=== PATIENT | female | born 1950 | race Caucasian/White ===

== ENCOUNTER 2017-11-21 07:52 | Day surgery (SDC) | payer MEDICARE, BC ==
[2017-11-16 16:34] VITALS: BMI 44.2
[2017-11-21 08:30] VITALS: TEMP 98.4
[2017-11-21] MEDS ORDERED: LIDOCAINE 1% 20 ML VIAL (10MG/ML) FOR IV START INTRADERMA ONE (08:46)
[2017-11-21] MEDS: LACTATED RINGERS 1,000 ML IV SCH ×2 (08:46→09:11)
[2017-11-21] MEDS ORDERED: PROPOFOL 10 MG/ML 20 ML VIAL IV ONE (09:13)
--- NOTE | 2017-11-21 09:42 | P.PCN ---
Date of Procedure: 11/21/17 Procedure(s) Performed: Procedure: Colonoscopy and biopsy. Preoperative diagnosis: Chronic diarrhea. Postoperative diagnosis: Exam of the colon and terminal ileum within normal limits. Preparation: HalfLytely prep. Sedation: Was provided by anesthesia. Brief clinical history: The patient is a 67-year-old female who was evaluated in the office around the end of August 2017 for diarrhea of 9 months duration. The patient reported having 6 or more bowel movements daily which are mushy and at times liquidy but without blood. No extraintestinal manifestations of inflammatory bowel disease. She had a colonoscopy 6 or 7 years prior. This evaluation is scheduled to assess for infectious or inflammatory conditions or other pathology. Procedure: With the patient on her left lateral decubitus position and after informed consent and adequate sedation, the perianal area was inspected and it did not show any fissures or fistulas. There were no masses felt on digital rectal examination. The Olympus CFQ 160L video colonoscope was then inserted in the rectum in the usual fashion and advanced to the cecum. I intubated the ileocecal valve and examined the terminal ileum as well as. Terminal ileum and colon appeared healthy with no edema, erythema, friability, ulceration, exudation or spontaneous bleeding. No polyps or tumors were seen or any obvious diverticular disease. I retroflexed the endoscope in the rectum before the endoscope was withdrawn. The patient tolerated the procedure well. Plan: The patient was reassured. Will await biopsy results. She will follow- up in the office as planned and we would keep you updated on her progress. As far as colon screening, I recommended a repeat colonoscopy in 10 years.
[2017-11-21 09:44] VITALS: RESP 20
[2017-11-21 10:04] VITALS: BP 127/76; PULSE 78
== END 2017-11-21 10:39 | disposition home or self-care (01) ==
LOC: ORWHC2ENDO 07:52
DX: K52.9 Noninfective gastroenteritis and colitis, unspecified (principal); K21.9 Gastro-esophageal reflux disease without esophagitis; I10 Essential (primary) hypertension; M10.9 Gout, unspecified; E07.9 Disorder of thyroid, unspecified; Z88.0 Allergy status to penicillin; Z79.899 Other long term (current) drug therapy
CPT/HCPCS: 88305; 45380; J2704

== ENCOUNTER 2018-06-30 15:36 | Emergency (ER) | payer MEDICARE, BC ==
[2018-06-30 16:45] VITALS: BP 137/76; PULSE 65; RESP 18; TEMP 97.4
--- NOTE | 2018-06-30 17:56 | XR ---
EXAMINATION TYPE: XR foot complete RT DATE OF EXAM: 06/30/2018 COMPARISON: NONE HISTORY: Foot pain TECHNIQUE: 3 views FINDINGS: There is some narrowing and spurring at the first MP joint. I see no fracture nor dislocati on. Metatarsals are intact. There is small plantar calcaneal spur. There are no erosions. 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 No fracture seen. Calcaneal spurring.
--- NOTE | 2018-06-30 17:57 | XR ---
EXAMINATION TYPE: XR ankle complete RT DATE OF EXAM: 06/30/2018 COMPARISON: NONE HISTORY: Ankle pain TECHNIQUE: 3 views FINDINGS: I see no fracture nor dislocation. Ankle mortise is anatomic. There is plantar calcaneal sp urring. Subtalar joint appears normal. IMPRESSION: No acute abnormality of the right ankle.
--- NOTE | 2018-06-30 18:18 | ED ---
General Adult HPI - General Chief complaint: Extremity Problem,Nontraumatic Stated complaint: Foot Pain Time Seen by Provider: 06/30/18 16:53 Source: patient Mode of arrival: ambulatory Limitations: no limitations - History of Present Illness Initial comments: 68-year-old female with a medical history of GERD and hypertension presents to the emergency department for a chief complaint of right dorsal foot pain times one day. Patient states she is in the process of moving and has been on her feet over the past few days packing and moving heavy objects. Patient denies any other specific injuries to the right foot. Patient states that today she started to notice pain in her right foot when standing. Patient states it is painful to walk on but she can walk on it. Patient denies pain in the ankle. Patient denies pain in the calf. No weakness in the right lower extremity. Patient states she often gets mild swelling in her lower extremities when she is on her feet. She states this has been ongoing and her primary care provider is aware. Patient has no other complaints at this time including shortness of breath, chest pain, abdominal pain, nausea or vomiting, headache, or visual changes. -: hour(s) - Related Data Home Medications Medication Instructions Recorded Confirmed Allopurinol 300 mg PO DAILY 08/30/16 06/30/18 Levothyroxine Sodium [Synthroid] 150 mcg PO DAILY 08/30/16 06/30/18 Liothyronine Sodium [Cytomel] 5 mcg PO DAILY 08/30/16 06/30/18 Multivitamins, Thera [Multivitamin 1 tab PO DAILY 08/30/16 06/30/18 (formulary)] Olmesartan [Benicar] 20 mg PO DAILY 08/30/16 06/30/18 Omeprazole 20 mg PO DAILY 08/30/16 06/30/18 Diphenox-Atrop 2.5-0.025 mg 1 tab PO DAILY 06/30/18 06/30/18 [Lomotil] Allergies Allergy/AdvReac Type Severity Reaction Status Date / Time Penicillins Allergy Rash/Hives Verified 06/30/18 16:57 Review of Systems ROS Statement: Those systems with pertinent positive or pertinent negative responses have been documented in the HPI. ROS Other: All systems not noted in ROS Statement are negative. Past Medical History Past Medical History: GERD/Reflux, Hypertension, Thyroid Disorder Additional Past Medical History / Comment(s): GOUT History of Any Multi-Drug Resistant Organisms: None Reported Past Surgical History: Orthopedic Surgery Additional Past Surgical History / Comment(s): thyroidecetomy, bilat. total knee replacements, choley, , pre-cancerous lesions., avi cataracts. Past Anesthesia/Blood Transfusion Reactions: No Reported Reaction Past Psychological History: No Psychological Hx Reported Smoking Status: Never smoker Past Alcohol Use History: Occasional Past Drug Use History: None Reported - Past Family History Father Family Medical History: Coronary Artery Disease (CAD), CVA/TIA, Diabetes Mellitus Mother Family Medical History: Coronary Artery Disease (CAD) General Exam Limitations: no limitations General appearance: alert, in no apparent distress Head exam: Present: atraumatic, normocephalic, normal inspection Eye exam: Present: normal appearance. Absent: scleral icterus, conjunctival injection ENT exam: Present: normal exam, mucous membranes moist Neck exam: Present: normal inspection. Absent: tenderness, meningismus, lymphadenopathy Respiratory exam: Present: normal lung sounds bilaterally. Absent: respiratory distress, wheezes, rales, rhonchi, stridor Extremities exam: Present: full ROM (Full range of motion of the right lower extremity including the digits, ankle and knee.), tenderness (Tenderness to the mid dorsal aspect of the left foot around the first through third metatarsals), normal capillary refill (Capillary refill less than 2 seconds and pedal pulse 2+ ), pedal edema (Patient has 1+ nonpitting edema which is equal bilaterally), other (Sensation intact in the right lower extremity). Absent: calf tenderness (No calf pain or swelling in the calf. No erythema or increased warmth. Negative Homans sign.) Back exam: Absent: tenderness Neurological exam: Present: alert, oriented X3, CN II-XII intact, normal gait ( Ambulatory in the emergency department) Psychiatric exam: Present: normal affect, normal mood Course Vital Signs 06/30/18 16:40 Temperature 97.4 F L Pulse Rate 65 Respiratory 18 Rate Blood Pressure 137/76 O2 Sat by Pulse 100 Oximetry Medical Decision Making - Medical Decision Making 68-year-old female presents to the emergency department for a chief complaint of right foot pain times one day. 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 Patient states Tylenol has been helping the pain. Patient has tenderness of the dorsal right foot. 1+ pitting edema noted to the bilateral lower extremities equally. No erythema or signs of infection in the right foot. Sensation intact. Neurovascular intact. Patient is able to ambulate on the right foot. No tenderness in the right calf. Negative Homans sign. No increased warmth or erythema noted in the right calf. No clinical signs of DVT. X-ray of the right foot shows osteoarthritis of the first MP joint. No fracture seen. Metatarsals are intact. Ankle x-ray shows no acute abnormality of the right ankle. Patient's left foot pain is likely related to overuse and osteoarthritis. Dawit wrap was applied to the right foot. Patient was educated to keep feet elevated and rest for the next few days. She can also ice the foot. Follow-up with primary care in 1-2 days. She will return to the emergency Department if she has any worsening symptoms. Disposition Clinical Impression: Arthritis, Overuse injury Disposition: HOME SELF-CARE Condition: Good Instructions: Osteoarthritis (ED), R.I.C.E. Treatment (ED) Additional Instructions: Please rest ice and elevate the right foot. Use Dawit wrap as necessary. Follow- up with primary care in 1-2 days. Return if you have any worsening symptoms, increased pain, or increased swelling. Is patient prescribed a controlled substance at d/c from ED?: No Referrals: Jasiel Ramos MD [Primary Care Provider] - 1-2 days Time of Disposition: 18:15
== END 2018-06-30 18:31 | disposition home or self-care (01) ==
LOC: EC 15:36
DX: M19.071 Primary osteoarthritis, right ankle and foot (principal); M70.871 Other soft tissue disorders related to use, overuse and pressure, right ankle and foot; K21.9 Gastro-esophageal reflux disease without esophagitis; I10 Essential (primary) hypertension; E07.9 Disorder of thyroid, unspecified; M10.9 Gout, unspecified; Z96.653 Presence of artificial knee joint, bilateral; Z79.899 Other long term (current) drug therapy; Z88.0 Allergy status to penicillin; Y93.E6 Activity, residential relocation
CPT/HCPCS: 99283

== ENCOUNTER → 2019-03-20 | Outpatient (CLI) | payer MEDICARE, BC ==
--- NOTE | 2019-03-20 14:34 | MM ---
Reason for exam: screening (asymptomatic). Last mammogram was performed 1 year and 6 months ago. History: Patient is postmenopausal and has history of other cancer at age 64. Physical Findings: A clinical breast exam by your physician is recommended on an annual basis and results should be correlated with mammographic findings. MG 3D Screening Mammo W/Cad Bilateral CC and MLO view(s) were taken. Prior study comparison: October 04, 2017, bilateral MG 3d screening mammo w/cad. June 11, 2016, bilateral MG 3d screening mammo w/cad. There are scattered fibroglandular densities. There is a stable lower outer quadrant mass at anterior depth back to 2013. No suspicious abnormality. No significant changes when compared with prior studies. ASSESSMENT: Benign, BI-RAD 2 RECOMMENDATION: Routine screening mammogram of both breasts in 1 year.
== END | disposition home or self-care (01) ==
LOC: RADMAMWWP 06:52
PROVIDERS: ATTEND Internal Medicine
DX: Z12.31 Encounter for screening mammogram for malignant neoplasm of breast (principal)
CPT/HCPCS: 77063; 77067

== ENCOUNTER → 2020-07-23 | Outpatient (CLI) | payer MEDICARE, BC ==
--- NOTE | 2020-07-23 14:32 | XR ---
EXAMINATION TYPE: XR knee standing AP BILAT DATE OF EXAM: 07/23/2020 CLINICAL HISTORY: Knee pain TECHNIQUE: AP standing views of the bilateral knees are obtained. COMPARISON: None. FINDINGS: There is no acute fracture/dislocation evident bilateral knees. Total knee arthroplasty is seen bilaterally. Tibial and femoral components appear to be well seated. IMPRESSION: There is no acute fracture or dislocation
== END | disposition home or self-care (01) ==
LOC: RADXRMAIN 13:54
PROVIDERS: ATTEND Internal Medicine
DX: M25.561 Pain in right knee (principal)
CPT/HCPCS: 73565

== ENCOUNTER 2020-07-26 17:05 | Emergency (ER) | payer MEDICARE, BC ==
[2020-07-26 17:14] VITALS: BP 107/77; PULSE 78; RESP 18; TEMP 98.2
[2020-07-26] MEDS ORDERED: cefTRIAXone IN SWFI 1,000 MG/10 ML SYRINGE IVP STA (18:04)
[2020-07-26 18:16] LABS: Basophils % (A) 0 %; Eosinophils # (A) 0.3 k/uL (0-0.7); Eosinophils % (A) 2 %; HCT 41.1 % (34.0-46.0); HGB 13.3 gm/dL (11.4-16.0); Lymphocytes # (A) 3.3 k/uL (1.0-4.8); Lymphocytes % (A) 29 %; MCH 29.9 pg (25.0-35.0); MCHC 32.4 g/dL (31.0-37.0); MCV 92.3 fL (80.0-100.0); Mean Platelet Volume 7.7; Monocytes # (A) 0.5 k/uL (0-1.0); Monocytes % (A) 4 %; Neutrophils # (A) 7.3 k/uL (1.3-7.7); Neutrophils % (A) 64 %; Platelet Count 314 k/uL (150-450); RBC 4.45 m/uL (3.80-5.40); RDW 14.9 % (11.5-15.5); WBC 11.6 k/uL (3.8-10.6)
[2020-07-26 18:33] LABS: Albumin 3.6 g/dL (3.5-5.0); Calcium 9.5 mg/dL (8.4-10.2); Potassium 4.4 mmol/L (3.5-5.1); Total Bilirubin 0.3 mg/dL (0.2-1.3); Total Protein 6.9 g/dL (6.3-8.2)
--- NOTE | 2020-07-26 18:36 | ED ---
Lower Extremity Injury HPI - General Source: patient Mode of arrival: ambulatory Limitations: no limitations <Dora Syed - Last Filed: 07/27/20 10:40> <Asuncion Mendez - Last Filed: 07/27/20 12:32> - General Chief Complaint: Extremity Injury, Lower Stated Complaint: L knee pain Time Seen by Provider: 07/26/20 17:16 - History of Present Illness Initial Comments: 70yo female presenting today for chief complaint of left anterior knee redness. Patient states she fell and had some superficial abrasions to the left anterior knee. Patient states she did x-rays at that time which were negative. Patient states she is able to weight-bear and ambulate however has noticed redness for the past few days over the anterior knee sprain slightly distally. Patient denies any posterior knee pain. Denies fever chills general malaise additional complaints remaining review of system negative (Dora Syed) - Related Data Home Medications Medication Instructions Recorded Confirmed Allopurinol 300 mg PO DAILY 08/30/16 06/30/18 Levothyroxine Sodium [Synthroid] 150 mcg PO DAILY 08/30/16 06/30/18 Liothyronine Sodium [Cytomel] 5 mcg PO DAILY 08/30/16 06/30/18 Multivitamins, Thera [Multivitamin 1 tab PO DAILY 08/30/16 06/30/18 (formulary)] Olmesartan [Benicar] 20 mg PO DAILY 08/30/16 06/30/18 Omeprazole 20 mg PO DAILY 08/30/16 06/30/18 Diphenox-Atrop 2.5-0.025 mg 1 tab PO DAILY 06/30/18 06/30/18 [Lomotil] Previous Rx's Medication Instructions Recorded Cephalexin [Keflex] 500 mg PO Q6HR 7 Days #28 cap 07/26/20 Allergies Allergy/AdvReac Type Severity Reaction Status Date / Time Penicillins Allergy Rash/Hives Verified 07/26/20 17:10 Review of Systems ROS Other: All systems not noted in ROS Statement are negative. <Dora Syed - Last Filed: 07/27/20 10:40> ROS Other: All systems not noted in ROS Statement are negative. <Asuncion Mendez - Last Filed: 09/27/20 12:32> ROS Statement: Those systems with pertinent positive or pertinent negative responses have been documented in the HPI. Past Medical History Past Medical History: GERD/Reflux, Hypertension, Thyroid Disorder Additional Past Medical History / Comment(s): GOUT History of Any Multi-Drug Resistant Organisms: None Reported Past Surgical History: Orthopedic Surgery Additional Past Surgical History / Comment(s): thyroidecetomy, bilat. total knee replacements, choley, , pre-cancerous lesions., avi cataracts. Past Anesthesia/Blood Transfusion Reactions: No Reported Reaction Past Psychological History: No Psychological Hx Reported Smoking Status: Never smoker Past Alcohol Use History: Occasional Past Drug Use History: None Reported - Past Family History Father Family Medical History: Coronary Artery Disease (CAD), CVA/TIA, Diabetes Me llitus Mother Family Medical History: Coronary Artery Disease (CAD) <Dora Syed - Last Filed: 07/27/20 10:40> General Exam Limitations: no limitations <Dora Syed - Last Filed: 07/27/20 10:40> - General Exam Comments Initial Comments: General: The patient is awake and alert, in no distress Eye: +3 mm pupils are equal, round and reactive to light, extra-ocular movements are intact. No nystagmus. There is normal conjunctiva bilaterally. No signs of icterus. Cardiovascular: There is a regular rate and rhythm. No murmur, rub or gallop is appreciated. Respiratory: Lungs are clear to auscultation, respirations are non-labored, breath sounds are equal. No wheezes, stridor, rales, or rhonchi. Musculoskeletal: Redness with poorly demarcated borders, warm to touch over left anterior knee. no area of fluctuance. No localized swelling over the prepatellar bursa. Patient has no pain over the side or posterior knee, ambulates freely without difficulty, can weight bear with out difficulty.Strength 5/5. Sensation intact. Pulses equal bilaterally 2+. Neurological: A&O x 3. CN II-XII intact grossly, There are no obvious motor or sensory deficits. Coordination appears grossly intact. Speech is normal. Skin: Skin is warm and dry and no rashes or lesions are noted. Psychiatric: Cooperative, appropriate mood & affect, normal judgment. (Dora Syed) Course Vital Signs 07/26/20 07/26/20 17:11 19:07 Temperature 98.2 F 98.2 F Pulse Rate 78 78 Respiratory 18 18 Rate Blood Pressure 107/77 107/77 O2 Sat by Pulse 99 99 Oximetry Medical Decision Making - Lab Data Result diagrams: 07/26/20 17:52 07/26/20 17:52 <Dora Syed - Last Filed: 07/27/20 10:40> - Lab Data Result diagrams: 07/26/20 17:52 07/26/20 17:52 <Asuncion Mendez - Last Filed: 07/27/20 12:32> - Medical Decision Making Superficial cellulitis. Evaluated by attending. Labs stable, mild leukocytosis. she does not appear toxic. able to range freely without pain out of proportion as well as weight bear. do not feel this is a septic joitn or bursa at this time. Patient will be treated with oral antibiotics for suspected cellulitis over anterior left knee and is to f/u with PCP. Dr. Mendez agreeable to care plan. (Dora Syed) I was available for consultation in the emergency department. The history and physical exam were done by the midlevel provider. I was consulted for this patients care. I reviewed the case with the midlevel provider and based on their presentation of the patient, I agree with the assessment, medical decision making and plan of care as documented. Chart was dictated using [employer] dictation software. Attempts were made to correct any dictation errors however some typographical errors may persist. Patient was seen during a national state of emergency due to the Covid-19 pandemic. (Asuncion Mendez) - Lab Data Lab Results 07/26/20 07/26/20 Range/Units 17:52 17:52 WBC 11.6 H (3.8-10.6) k/uL RBC 4.45 (3.80-5.40) m/uL Hgb 13.3 (11.4-16.0) gm/dL Hct 41.1 (34.0-46.0) % MCV 92.3 (80.0-100.0) fL MCH 29.9 (25.0-35.0) pg MCHC 32.4 (31.0-37.0) g/dL RDW 14.9 (11.5-15.5) % Plt Count 314 (150-450) k/uL Neutrophils % 64 % Lymphocytes % 29 % Monocytes % 4 % Eosinophils % 2 % Basophils % 0 % Neutrophils # 7.3 (1.3-7.7) k/uL Lymphocytes # 3.3 (1.0-4.8) k/uL Monocytes # 0.5 (0-1.0) k/uL Eosinophils # 0.3 (0-0.7) k/uL Basophils # 0.0 (0-0.2) k/uL Sodium 137 (137-145) mmol/L Potassium 4.4 (3.5-5.1) mmol/L Chloride 109 H (98-107) mmol/L Carbon Dioxide 22 (22-30) mmol/L Anion Gap 6 mmol/L BUN 25 H (7-17) mg/dL Creatinine 0.81 (0.52-1.04) mg/dL Est GFR (CKD-EPI)AfAm 85 (>60 ml/min/1.73 sqM) Est GFR (CKD-EPI)NonAf 74 (>60 ml/min/1.73 sqM) Glucose 111 H (74-99) mg/dL Calcium 9.5 (8.4-10.2) mg/dL Total Bilirubin 0.3 (0.2-1.3) mg/dL AST 25 (14-36) U/L ALT 15 (4-34) U/L Alkaline Phosphatase 102 (38-126) U/L Total Protein 6.9 (6.3-8.2) g/dL Albumin 3.6 (3.5-5.0) g/dL Disposition Is patient prescribed a controlled substance at d/c from ED?: No Time of Disposition: 18:35 <Dora Syed - Last Filed: 07/27/20 10:40> <Asuncion Mendez - Last Filed: 07/27/20 12:32> Clinical Impression: Cellulitis, Anterior knee pain Disposition: HOME SELF-CARE Condition: Good Additional Instructions: Please use medication as discussed. Please follow-up with family doctor in the next 2 days.. Please return to emergency room if the symptoms increase or worsen or for any other concerns. Prescriptions: Cephalexin [Keflex] 500 mg PO Q6HR 7 Days #28 cap Referrals: Alvin Clements MD [Primary Care Provider] - 1-2 days
== END 2020-07-26 19:08 | disposition home or self-care (01) ==
LOC: EC 17:05
DX: L03.116 Cellulitis of left lower limb (principal); D72.829 Elevated white blood cell count, unspecified; I10 Essential (primary) hypertension; E07.9 Disorder of thyroid, unspecified; K21.9 Gastro-esophageal reflux disease without esophagitis; M10.9 Gout, unspecified; Z79.890 Hormone replacement therapy; Z79.899 Other long term (current) drug therapy; Z88.0 Allergy status to penicillin; Z96.653 Presence of artificial knee joint, bilateral
CPT/HCPCS: 36415; 80053; 85025; 99283; 96374; J0696

== ENCOUNTER 2021-01-23 14:47 | Emergency (ER) | payer MEDICARE, BC ==
[2021-01-23 14:53] VITALS: RESP 18
--- NOTE | 2021-01-23 15:24 | ED ---
Female Urogenital HPI - General Chief complaint: Urogenital Stated complaint: Abd pain, Possible UTI Time Seen by Provider: 01/23/21 15:02 Source: patient, RN notes reviewed Mode of arrival: ambulatory Limitations: no limitations - History of Present Illness Initial comments: Patient is a 70-year-old female presents emergency department with dysuria and frequency. She noted that she's been having this issue for approximately 1 day. She notes that she does have a history of UTI but then several years since her last one. She denied any other complaints or issues while sitting up in bed during exam and interview. She was in no apparent distress or pain. She denied any recent antibiotic use chest pain shortness of breath headache nausea vomitin g diarrhea constipation fever fatigue chills - Related Data Home Medications Medication Instructions Recorded Confirmed Allopurinol 300 mg PO DAILY 08/30/16 06/30/18 Levothyroxine Sodium [Synthroid] 150 mcg PO DAILY 08/30/16 06/30/18 Liothyronine Sodium [Cytomel] 5 mcg PO DAILY 08/30/16 06/30/18 Multivitamins, Thera [Multivitamin 1 tab PO DAILY 08/30/16 06/30/18 (formulary)] Olmesartan [Benicar] 20 mg PO DAILY 08/30/16 06/30/18 Omeprazole 20 mg PO DAILY 08/30/16 06/30/18 Diphenox-Atrop 2.5-0.025 mg 1 tab PO DAILY 06/30/18 06/30/18 [Lomotil] Previous Rx's Medication Instructions Recorded Cephalexin [Keflex] 500 mg PO Q6HR 7 Days #28 cap 07/26/20 Sulfamethox-Tmp 800-160Mg [Bactrim 1 each PO Q12HR #10 tab 01/23/21 Ds] Allergies Allergy/AdvReac Type Severity Reaction Status Date / Time Penicillins Allergy Rash/Hives Verified 07/26/20 17:10 Review of Systems ROS Statement: Those systems with pertinent positive or pertinent negative responses have been documented in the HPI. ROS Other: All systems not noted in ROS Statement are negative. Past Medical History Past Medical History: GERD/Reflux, Hypertension, Thyroid Disorder Additional Past Medical History / Comment(s): GOUT History of Any Multi-Drug Resistant Organisms: None Reported Past Surgical History: Orthopedic Surgery Additional Past Surgical History / Comment(s): thyroidecetomy, bilat. total knee replacements, choley, , pre-cancerous lesions., avi cataracts. Past Anesthesia/Blood Transfusion Reactions: No Reported Reaction Past Psychological History: No Psychological Hx Reported Smoking Status: Never smoker Past Alcohol Use History: Occasional Past Drug Use History: None Reported - Past Family History Father Family Medical History: Coronary Artery Disease (CAD), CVA/TIA, Diabetes Mellitus Mother Family Medical History: Coronary Artery Disease (CAD) General Exam Limitations: no limitations General appearance: alert, in no apparent distress, obese Head exam: Present: atraumatic, normocephalic, normal inspection Eye exam: Present: normal appearance, PERRL, EOMI. Absent: scleral icterus, conjunctival injection, periorbital swelling ENT exam: Present: normal exam, mucous membranes moist Neck exam: Present: normal inspection. Absent: tenderness, meningismus, lymphadenopathy Respiratory exam: Present: normal lung sounds bilaterally. Absent: respiratory distress, wheezes, rales, rhonchi, stridor Cardiovascular Exam: Present: regular rate, normal rhythm, normal heart sounds. Absent: systolic murmur, diastolic murmur, rubs, gallop, clicks GI/Abdominal exam: Present: soft, normal bowel sounds. Absent: distended, tenderness, guarding, rebound, rigid Extremities exam: Present: normal inspection, full ROM, normal capillary refill. Absent: tenderness, pedal edema, joint swelling, calf tenderness Neurological exam: Present: alert, oriented X3, CN II-XII intact Psychiatric exam: Present: normal affect, normal mood Skin exam: Present: warm, dry, intact, normal color. Absent: rash Course Vital Signs 01/23/21 14:50 Temperature 98.2 F Pulse Rate 93 Respiratory 18 Rate Blood Pressure 95/61 O2 Sat by Pulse 100 Oximetry Medical Decision Making - Medical Decision Making 70-year-old female complaining of dysuria and frequency. Urinalysis ordered. UA shows. Tract infection. 1 g Rocephin ordered. Case discussed with Dr. Rivas, patient can discharge home - Lab Data Lab Results 01/23/21 Range/Units 16:11 Urine Color Yellow Urine Appearance Cloudy H (Clear) Urine pH 6.0 (5.0-8.0) Ur Specific [place] 1.023 (1.001-1.035) Urine Protein 2+ H (Negative) Urine Glucose (UA) Negative (Negative) Urine Ketones Negative (Negative) Urine Blood Large H (Negative) Urine Nitrite Negative (Negative) Urine Bilirubin Negative (Negative) Urine Urobilinogen 2.0 (<2.0) mg/dL Ur Leukocyte Esterase Large H (Negative) Urine RBC >182 H (0-5) /hpf Urine WBC >182 H (0-5) /hpf Urine WBC Clumps Occasional H (None) /hpf Ur Squamous Epith Cells 1 (0-4) /hpf Urine Bacteria Rare H (None) /hpf Hyaline Casts 18 H (0-2) /lpf Urine Mucus Occasional H (None) /hpf Disposition Clinical Impression: Urinary tract infection Disposition: HOME SELF-CARE Condition: Stable Instructions (If sedation given, give patient instructions): Urinary Tract Infection in Women (ED) Additional Instructions: Please return to the Emergency Department if symptoms worsen or any other concerns. If any nausea vomiting flank pain arises please return to emergency department. Increase oral fluid intake. Take a bite as prescribed until complete. Follow-up with primary care in 3-5 days. Prescriptions: Sulfamethox-Tmp 800-160Mg [Bactrim Ds] 1 each PO Q12HR #10 tab Is patient prescribed a controlled substance at d/c from ED?: No Referrals: Alvin Clements MD [Primary Care Provider] - 1-2 days Time of Disposition: 16:58
[2021-01-23 16:32] LABS: Appearance,Urine Cloudy (Clear); Bacteria,Urine Rare /hpf; Bilirubin,Urine Negative (Negative); Blood,Urine Large (Negative); Color,Urine Yellow; Glucose,Urine (UA) Negative (Negative); Hyaline Casts,Urine 18 /lpf (0-2); Ketones,Urine Negative (Negative); Leukocyte Esterase,Urine Large (Negative); Mucus,Urine Occasional /hpf; Nitrite,Urine Negative (Negative); Protein,Urine 2+ (Negative); RBC,Urine >182 /hpf (0-5); Specific Gravity,Urine 1.023 (1.001-1.035); Squamous Epithelial Cell,Urine 1 /hpf (0-4); WBC,Urine >182 /hpf (0-5)
[2021-01-23 17:34] VITALS: BP 110/65; PULSE 72; TEMP 98.1
== END 2021-01-23 17:34 | disposition home or self-care (01) ==
LOC: EC 14:47
DX: N39.0 Urinary tract infection, site not specified (principal); I10 Essential (primary) hypertension; K21.9 Gastro-esophageal reflux disease without esophagitis; Z88.0 Allergy status to penicillin
CPT/HCPCS: 81001; 87086; 99284; 96365; J0696

== ENCOUNTER → 2021-06-01 | Outpatient (CLI) | payer MEDICARE, BC ==
--- NOTE | 2021-06-01 15:02 | EST ---
EXERCISE STRESS DATE OF SERVICE: 06/01/21 AGE: 71 SEX: F HT: 5'3" WT: 260 lbs PROTOCOL: Shadi STAGE: 2 DURATION OF EXERCISE: 4:27 HEART RATE REST: 131 BLOOD PRESSURE REST: 147/91 MAXIMUM HEART RATE ACHIEVED: 131 MAXIMUM BLOOD PRESSURE: 190/97 85% MPHR: 126 100% MPHR: 148 METS: 5.8 RESULTS: Baseline rhythm is sinus mechanism. Rate 67, normal axis and intervals, rare PVCs. Baseline blood pressure 147/91 mmHg. Patient exercised on Yeison protocol for 4 minutes and 27 seconds reaching peak rate 131 beats per minute which is equal to 88% maximum predicted heart rate. Peak blood pressure 190/97 mmHg. Test for terminated secondary to fatigue. There was no chest pain. Electrocardiograph monitoring revealed frequent single PVCs. There was no evidence of diagnostic ischemic ST deviation. CONCLUSION: 1. Decreased exercise tolerance with frequent single PVCs. 2. Normal electrocardiograph response to exercise with no evidence of exercise induced ischemia. MMODL / IJN: [id number] /
--- NOTE | 2021-06-02 10:53 | NM ---
EXAMINATION TYPE: NM stress cardiolite complete DATE OF EXAM: 06/01/2021 COMPARISON: NONE HISTORY: 71 year-old female shortness of breath, dyspnea TECHNIQUE: After the intravenous administration of 10.1 mCi Tc 99m Sestamibi - Rest images obtained 45 minutes post injection. The patient exercised using a STACEY protocol and 1 minute prior to peak exercise was injected with 26.9 mCi Tc 99m Sestamibi - Stress images obtained 30 minutes post injecti on. FINDINGS: Targeted heart rate (126 BPM) was achieved during performance of the study (131 bpm achieved). Total exercise time 4 minutes 27 seconds. Review of stress and rest SPECT images demonstrates fixed perfusion defect along the inferior wall wh ich is larger on rest suggesting a component of attenuation artifact though. No discrete reversibilit y. Gated analysis shows partial augmentation of the inferior wall with an estimated left ventricular ejection fraction of a 73 %. TID is calculated at 0.85, within normal limits. IMPRESSION: Prominent fixed defect along the inferior wall is larger on rest imaging suggesting a component of at tenuation artifact. Correlate for history of prior inferior wall infarct. No discrete reversibility s een.
== END | disposition home or self-care (01) ==
LOC: RADNMMAIN 09:04
PROVIDERS: ATTEND Internal Medicine
DX: I49.3 Ventricular premature depolarization (principal)
CPT/HCPCS: 93017; 78452; A9500

== ENCOUNTER → 2021-09-09 | Outpatient (CLI) | payer MEDICARE, BC ==
--- NOTE | 2021-09-09 17:02 | BD ---
EXAMINATION TYPE: Axial Bone Density DATE OF EXAM: 09/09/2021 COMPARISON: 2014 CLINICAL HISTORY: Postmenopausal screening Height: 63 Weight: 252.6 FRAX RISK QUESTIONS: Alcohol (3 or more units per day): no Family History (Parent hip fracture): yes Glucocorticoids (More than 3mos): no (Ex: prednisone, prednisolone, methylprednisolone, dexamethasone, and hydrocortisone). History of Fracture in Adulthood: no Secondary Osteoporosis: 1. Type 1 Diabetes: no 2. Hyperthyroidism: no 3. Menopause before 45: no 4. Malnutrition: no 5. Chronic liver disease: no Rheumatoid Arthritis: no Current Tobacco Use: no RISK FACTORS HISTORY OF: Surgery to Spine/Hip(right/left)/Wrist (right/left): no Family History of Osteoporosis: yes Active: no Diet low in dairy products/other sources of calcium: no Postmenopausal woman: yes Lost more than 2 inches in height since high school: no MEDICATIONS: liothyronine, allopurinol, omeprazole, diphenoxylate, benazepril Thyroid Medications: synthroid How Long: since 1976 Additional History: EXAM MEASUREMENTS: Bone mineral densitometry was performed using the [employer] ([employer]) System. Bone mineral density as measured about the Lumbar spine is: ----- L1-L4(G/cm2): 1.008 T Score Values are as follows: ----- L2: -1.6 ----- L3: -1.1 ----- L4: -1.8 ----- L1-L4: -1.4 Bone mineral density has: decreased -4.0 % since study of: 12.25.2014 Bone mineral density about the R hip (g/cm2 0.809 Bone mineral density about the L hip (g/cm2): 0.757 T Score values are as follows: -----R Neck: -1.6 -----L Neck: -2.0 -----R Total: -1.5 -----L Total: -1.6 Bone mineral density has: decreased -4.5 % since study of: 12.25.2014 IMPRESSION: Osteopenia (T Score between -2.5 and -1). There is slightly increased risk of fracture and the patient may be considered for treatment. Re-Screen 2-5 years. NOTE: T-SCORE=SD OF THE YOUNG ADULT MEAN.
--- NOTE | 2021-09-10 11:45 | MM ---
Reason for exam: screening (asymptomatic). Last mammogram was performed 2 years and 6 months ago. History: Patient is postmenopausal and has history of other cancer at age 64. Physical Findings: A clinical breast exam by your physician is recommended on an annual basis and results should be correlated with mammographic findings. MG 3D Screening Mammo W/Cad Bilateral CC and MLO view(s) were taken. Prior study comparison: March 20, 2019, bilateral MG 3d screening mammo w/cad. October 04, 2017, bilateral MG 3d screening mammo w/cad. There are scattered fibroglandular densities. There is chronic nodularity bilaterally. There is no discrete abnormality. ASSESSMENT: Benign, BI-RAD 2 RECOMMENDATION: Routine screening mammogram of both breasts in 1 year.
== END | disposition home or self-care (01) ==
LOC: RADMAMWWP 09:15
PROVIDERS: ATTEND Internal Medicine
DX: Z12.31 Encounter for screening mammogram for malignant neoplasm of breast (principal); Z13.820 Encounter for screening for osteoporosis; M85.89 Other specified disorders of bone density and structure, multiple sites; Z78.0 Asymptomatic menopausal state
CPT/HCPCS: 77063; 77067; 77080

== ENCOUNTER → 2022-04-12 | Outpatient (CLI) | payer MEDICARE, BC ==
--- NOTE | 2022-04-13 02:14 | MR ---
EXAMINATION TYPE: MR shoulder RT wo con DATE OF EXAM: 04/12/2022 COMPARISON: Told her pain HISTORY: Right shoulder pain and limited range of motion for 6 months. Multiplanar multiecho imaging of the right shoulder with no contrast. There is some narrowing of the glenohumeral joint space. There are subchondral cystic changes in the glenoid. There is shoulder joint effusion. There are small full-thickness tear in the supraspinatus t endon over the top of the humeral head. There is no retraction. There is 1.5 cm area of edema in the glenoid. There is hypertrophic spurring at the AC joint and mild subacromial impingement on the supra spinatus tendon and muscle. The subscapularis tendon is intact. Biceps tendon is intact. The glenoid taina appear intact. There i s some fluid around the infraspinatus tendon. The humeral head shows no fracture. IMPRESSION: Small full-thickness tear in the supraspinatus tendon. No retraction. Shoulder joint effusion. Osteoa rthritis at the glenohumeral joint. Large area of edema in the glenoid with subchondral cystic change s consistent with bone bruise and osteoarthritis and degenerative cyst formation. Mild spurring at th e AC joint and subacromial impingement. Degenerative cyst formation also present in the superior christiano ral head.
== END | disposition home or self-care (01) ==
LOC: RADMRIMAIN 19:43
PROVIDERS: ATTEND Internal Medicine
DX: M25.511 Pain in right shoulder (principal); M75.121 Complete rotator cuff tear or rupture of right shoulder, not specified as traumatic

== ENCOUNTER → 2022-09-27 | Outpatient (CLI) | payer MEDICARE, BC ==
--- NOTE | 2022-09-27 13:05 | US ---
EXAMINATION TYPE: US carotid duplex BILAT DATE OF EXAM: 09/27/2022 COMPARISON: NONE CLINICAL HISTORY: I65.23 OCCLUSION AND STENOSIS OF BILATERAL CAROTID. TECHNIQUE: Carotid duplex ultrasound examination. Indirect Doppler criteria was utilized. FINDINGS: EXAM MEASUREMENTS: RIGHT: Peak Systolic Velocity (PSV) cm/sec ----- Right CCA: 78.0 ----- Right ICA: 94.0 ----- Right ECA: 52.9 ICA/CCA ratio: 1.21 RIGHT: End Diastole cm/sec ----- Right CCA: 26.6 ----- Right ICA: 39.1 ----- Right ECA: 11.3 LEFT: Peak Systolic Velocity (PSV) cm/sec ----- Left CCA: 70.0 ----- Left ICA: 110 ----- Left ECA: 64.3 ICA/CCA ratio: 1.57 LEFT: End Diastole cm/sec ----- Left CCA: 24.1 ----- Left ICA: 39.0 ----- Left ECA: 9.8 VERTEBRALS (direction of flow): Right Vertebral: Antegrade Left Vertebral: Antegrade Rhythm: Normal RN ER NOTES: Mild plaque bilateral bifurcations. No evidence of increased velocities. IMPRESSION: No hemodynamically significant stenosis in either internal carotid artery. Criteria for Assigning % of Stenosis / Diameter reduction (Estimation based on the indirect measurements of the internal carotid artery velocities (ICA PSV). 1. Normal (no stenosis)=ICA PSV < 125 cm/s: ratio < 2.0: ICA EDV<40 cm/s. 2. Less than 50% stenosis=ICA PSV < 125 cm/s: ratio < 2.0: ICA EDV<40 cm/s. 3. 50 to 69% stenosis=ICA PSV of 125 to 230 cm/s: ration 2.0 ? 4.0: ICA EDV 40-100 cm/s. 4. Greater than 70% stenosis to near occlusion= ICA PSV > 230 cm/s: ratio > 4.0: ICA EDV > 100 cm/s. 5. Near occlusion= ICA PSV velocities may be low or undetectable: variable ratio and ICA EDV. 6. Total occlusion=unable to detect flow.
== END | disposition home or self-care (01) ==
LOC: RADUSWWP 12:17
PROVIDERS: ATTEND Internal Medicine
DX: I65.23 Occlusion and stenosis of bilateral carotid arteries (principal); I34.0 Nonrheumatic mitral (valve) insufficiency
CPT/HCPCS: 93880

== ENCOUNTER → 2022-11-02 | Outpatient (CLI) | payer MEDICARE, BC ==
--- NOTE | 2022-11-03 17:46 | MM ---
Reason for Exam: Screening (asymptomatic). Last mammogram was performed 1 year(s) and 2 month(s) ago. Patient History: Menarche at age 13. First Full-Term at age 26. Postmenopausal. Other cancer, age 64. Risk Values: Shama 5 year model risk: 1.8%. NCI Lifetime model risk: 4.4%. Prior Study Comparison: 10/04/2017 Bilateral Screening Mammogram, [facility]. 03/20/2019 Bilateral Screening Mammogram, [facility]. 09/09/2021 Bilateral Screening Mammogram, [facility]. Tissue Density: There are scattered fibroglandular densities. Findings: Analyzed By CAD. Pattern appears symmetrical and stable. Chronic nodularity is noted bilaterally No suspicious groups of microcalcifications, spiculated or lobular masses, architectural distortion or other secondary signs of malignancy are mammographically apparent. Overall Assessment: Benign, BI-RAD 2 Management: Screening Mammogram of both breasts in 1 year. A negative mammogram report should not preclude additional follow up of suspicious palpable abnormalities. Patient should continue monthly self breast exam. A clinical breast exam by your physician is recommended on an annual basis and results should be correlated with mammographic findings. Electronically signed and approved by: Joel Ahn D.O. Radiologis
== END | disposition home or self-care (01) ==
LOC: RADMAMWWP 11:18
PROVIDERS: ATTEND Internal Medicine
DX: Z12.31 Encounter for screening mammogram for malignant neoplasm of breast (principal); Z78.0 Asymptomatic menopausal state
CPT/HCPCS: 77063; 77067

== ENCOUNTER → 2022-11-16 | Outpatient (CLI) | payer MEDICARE, BC ==
--- NOTE | 2022-11-16 13:33 | CA ---
Transthoracic Echo Report Name: Andreia Burnette Age: 72 Gender: F : 1950 Exam Date: 11/16/2022 08:30 Exam Location: [facility] Ht (in): 63 Wt (lb): 260 Ordering Physician: Alvin Clements MD Attending/Referring Phys: Die Inspector Kirsten Cheung RDCS Procedure CPT: Indications: I34.0 NONRHEUMATIC MITRAL (VALVE) INSUFF Cardiac Hx: Technical Quality: Fair Contrast 1: Total Dose (mL): Contrast 2: Total Dose (mL): MEASUREMENTS (Male / Female) Normal Values 2D ECHO LV Diastolic Diameter PLAX 2.9 cm 4.2 - 5.9 / 3.9 - 5.3 cm LV Systolic Diameter PLAX 1.8 cm IVS Diastolic Thickness 1.4 cm 0.6 - 1.0 / 0.6 - 0.9 cm LVPW Diastolic Thickness 1.2 cm 0.6 - 1.0 / 0.6 - 0.9 cm LV Relative Wall Thickness 0.9 RV Internal Dim ED PLAX 3.3 cm LA Volume 75.2 cm??? 18 - 58 / 22 - 52 cm??? M-MODE Aortic Root Diameter MM 3.5 cm LA Systolic Diameter MM 4.9 cm LA Ao Ratio MM 1.4 DOPPLER AV Peak Velocity 147.8 cm/s AV Peak Gradient 8.7 mmHg LVOT Peak Velocity 132.6 cm/s LVOT Peak Gradient 7.0 mmHg MV Area PHT 2.9 cm??? Mitral E Point Velocity 58.3 cm/s Mitral A Point Velocity 128.0 cm/s Mitral E to A Ratio 0.5 MV Deceleration Time 259.2 ms MV E' Velocity 2.9 cm/s Mitral E to MV E' Ratio 19.9 TR Peak Velocity 255.1 cm/s TR Peak Gradient 26.0 mmHg Right Ventricular Systolic Press 29.3 mmHg FINDINGS Left Ventricle Moderately increased left ventricular wall thickness. Left ventricular cavity size normal. Normal left ventricular systolic function with no obvious regional wall motion abnormalities. Left ventricular ejection fraction is estimated at 55-60 %. Right Ventricle Normal right ventricular size and function. Right ventricular systolic pressure within normal limits. Right Atrium Normal right atrial size. Left Atrium Moderate left atrial dilatation. Mitral Valve Structurally normal mitral valve. [id number] mitral regurgitation. Aortic Valve Trileaflet aortic valve. No aortic valve stenosis or regurgitation. Tricuspid Valve Structurally normal tricuspid valve. Mild tricuspid regurgitation. Pulmonic Valve Trace pulmonic regurgitation. Pericardium No pericardial effusion. Aorta Normal size aortic root and proximal ascending aorta. CONCLUSIONS LVH with preserved LV systolic function 2+ mitral regurgitation Previewed by: Dr. Tim Chen MD (Electronically Signed) Final Date: 16 November 2022 13:31
== END | disposition home or self-care (01) ==
LOC: RADECHMAIN 08:20
PROVIDERS: ATTEND Internal Medicine
DX: I34.0 Nonrheumatic mitral (valve) insufficiency (principal)
CPT/HCPCS: 93306

== ENCOUNTER 2023-02-10 07:23 | Day surgery (SDC) | payer MEDICARE, BC ==
--- NOTE | 2023-02-09 21:42 | HP ---
HISTORY AND PHYSICAL DATE OF SURGERY: 02/10/2023. HISTORY OF PRESENT ILLNESS: Andreia Burnette is a 72-year-old patient seen with progressive right shoulder pain. We discussed options. She elected to proceed with right shoulder arthroscopy. Consent was obtained. Medical clearance was provided by Dr. Clements. PAST MEDICAL HISTORY: Hypertension, hypothyroidism, hyperlipidemia. PAST SURGICAL HISTORY: section, cholecystectomy, hand surgery, thyroidectomy, bilateral total knee arthroplasty. DAILY MEDICATIONS: 1. Allopurinol. 2. Benazepril. 3. Levothyroxine. 4. Omeprazole. 5. Vitamins. ALLERGIES: Penicillin. SOCIAL HISTORY: She denies tobacco use. PHYSICAL EVALUATION OF THE RIGHT SHOULDER: Flexion is 120 degrees, abduction is 70 degrees. External rotation is 20 degrees with pain and weakness. She has tenderness along the anterior lateral acromion and rotator cuff insertion site. Impingement sign is positive at 80 degrees. Drop-arm sign is positive. Distal neurovascular exam is intact. RADIOGRAPHS: Right shoulder radiographs revealed a type 2 acromion along with evidence for acromioclavicular joint osteoarthritis, and cystic changes of the greater tuberosity. Right shoulder MRI revealed rotator cuff tear, effusion, impingement, osteoarthritic issues/changes. IMPRESSION: 1. Right shoulder impingement with rotator cuff tear. 2. Right shoulder acromioclavicular joint osteoarthritis. 3. Hypertension. 4. Hyperlipidemia. PLAN: Right shoulder arthroscopy with subacromial decompression, arthroscopic rotator cuff repair, Prema procedure and debridement. MMODL / IJN: [id number] /
[~2023-02-10 07:23] MED LIST: DEXAMETHASONE SOD PHOSPHATE 4 MG/ML 1 ML VIAL IV ONE; HYDROmorphone 0.5 MG/0.5 ML SYRINGE IVP PRN; LACTATED RINGERS 1,000 ML IV SCH; ONDANSETRON 4 MG/2 ML VIAL IVP ONE
[2023-02-10] MEDS ORDERED: MIDAZOLAM 2 MG/2 ML VIAL IV ONE (08:28)
[2023-02-10] MEDS ORDERED: LIDOCAINE 4% LTA KIT (4 ML) TOPICAL ONE (09:33)
[2023-02-10] MEDS ORDERED: ROPIVACAINE 5 MG/ML 30 ML VIAL ONE (09:33)
[2023-02-10] MEDS ORDERED: fentaNYL (PF) 50 MCG/ML 2 ML AMP ONE (09:33)
[2023-02-10] MEDS ORDERED: PROPOFOL 10 MG/ML 20 ML VIAL IV ONE (09:33)
[2023-02-10] MEDS ORDERED: SUCCINYLCHOLINE CHLORIDE 200 MG/10 ML VIAL IV ONE (09:33)
[2023-02-10] MEDS ORDERED: DEXAMETHASONE SOD PHOSPHATE 4 MG/ML 1 ML VIAL ONE (09:33)
[2023-02-10] MEDS ORDERED: LIDOCAINE 2% INJ 20 MG/ML (2 ML VIAL) ONE (09:33)
--- NOTE | 2023-02-10 10:55 | P.OP ---
Date of Procedure: 02/10/23 Preoperative Diagnosis: Right shoulder impingement Postoperative Diagnosis: 1. Right shoulder rotator cuff tear 2. Right shoulder impingement 3. Right shoulder acromioclavicular joint osteoarthritis 4. Right shoulder partial long head biceps tendon tear 5. 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 Right shoulder arthroscopic rotator cuff repair 2. Right shoulder arthroscopic subacromial decompression 3. Right shoulder arthroscopic Prema procedure 4. Right shoulder arthroscopic biceps tenotomy Implants: 1Arthrex 5.5 swivel lock anchor Anesthesia: GETA, regional (Interscalene block) Surgeon: Joe Mir Upholstery Repairer #1: Kal Gardner Estimated Blood Loss (ml): 10 Pathology: none sent Condition: stable Disposition: PACU Indications for Procedure: 72-year-old patient seen with progressive right shoulder pain. After treatment options were discussed, she elected to proceed with arthroscopy. Operative Findings: See description of procedure Description of Procedure: Patient underwent an interscalene block by department of anesthesia. The patient was then taken to the operative suite. The patient underwent a general anesthetic by the department of anesthesia. The patient was placed into a lateral position and secured. There was appropriate padding of the bony prominence. Right shoulder was then prepped and draped in normal sterile orthopedic fashion. We placed the extremity in 10 pounds of longitudinal traction. A posterior incision was now made for a posterior working portal site. The trocar and cannula were inserted into the glenohumeral joint. Arthroscopy was initiated. Spinal needle was now inserted anteriorly, to ascertain the anterior working portal site. An incision was now made in that area, a trocar was inserted followed by a probe. There were grade 4 chondromalacia changes involving the humeral head and grade 3/4 chondromalacia changes involving the glenoid fossa. There was some superficial fraying of the anterior labrum. There was some partial tearing long head biceps tendon. I performed an arthroscopic biceps tenotomy. I debrided out the superficial fraying of the anterior labrum. The residual labrum was probed and was found to be stable. Instruments were now removed from glenohumeral joint. Utilizing the posterior working portal site, the trocar and cannula were inserted into the subacromial space. Arthroscopy initiated. I made an incision 2 fingerbreadths lateral to the acromion. I introduced my trocar followed by my ArthroCare ablator. I now began ablating thick subacromial bursal tissue, which exposed the undersurface of the anterior acromion. There was diminished subacromial space. There was a very prominent anterior acromion. A motorized bur was introduced and a subacromial decompression was performed. I also excised some osteophytes off the inferior aspect of the distal clavicle. The AC joint was visualized and noted to be fairly arthritic. The motorized bur was introduced in the anterior portal site and a Prema procedure was performed without difficulty, decompressing the AC joint nicely. I turned my attention to the rotator cuff. There was a 1.5 cm tear along the distal supraspinatus. I debrided the margins getting down to stable tendon tissue. I abraded the footprint with a motorized bur. With the assistance of Shelton IVY now passed 3 everted mattress sutures through good bites of rotator cuff tendon. I punched the hole in the footprint area for insertion of an anchor. All 6 limbs of suture were passed through the eyelet of a Arthrex 5.5 swivel lock anchor. I placed the eyelet into our pre-punch hole. I held in position while Shelton IVY tension all 6 limbs of suture and then deployed the anchor with good fixation noted. All residual suture limbs were now clipped. We had good compression of the tendon along the entire footprint. Instruments now removed from the portal sites. All portal sites were approximated with nylon suture. Sterile dressings were applied followed by a shoulder sling. Kal IVY assisted in this case. The patient was awakened, transferred to a bed, and taken to recovery in stable condition.
[2023-02-10 11:30] VITALS: TEMP 96.8
[2023-02-10 11:51] VITALS: RESP 16
[2023-02-10 12:30] VITALS: BP 151/90; PULSE 73
--- NOTE | 2023-02-14 07:52 | P.ANPRN ---
Procedure Note - Anesthesia - Nerve Block Performed Right Interscalene Single Time Out Performed: Yes Date of Procedure: 02/10/23 Procedure Start Time: Procedure Stop Time: Location of Patient: PreOp Indication: Acute Post-Operative Pain, Requested by Surgeon Sedation Type: Sedate with meaningful contact maintained Preparation: Sterile Prep Position: Supine Needle Types: Pajunk Needle Gauge: 21 Ultrasound used to visualize needle placement: Yes Ultrasound used to observe medication spread: Yes Blood Aspirated: No Pain Paresthesia on Injection Noted: No Resistance on Injection: Normal Image Stored and Saved: Yes Events: Uneventful and Well Tolerated (Ropivacaine 0.5% 20 mL plus dexamethasone 4 mg)
== END 2023-02-10 13:05 | disposition home or self-care (01) ==
LOC: OR 07:23
PROVIDERS: ATTEND Orthopaedic Surgery
DX: S46.111A Strain of muscle, fascia and tendon of long head of biceps, right arm, initial encounter (principal); M75.41 Impingement syndrome of right shoulder; M75.101 Unspecified rotator cuff tear or rupture of right shoulder, not specified as traumatic; M19.011 Primary osteoarthritis, right shoulder; M94.211 Chondromalacia, right shoulder; E07.9 Disorder of thyroid, unspecified; I10 Essential (primary) hypertension; K21.9 Gastro-esophageal reflux disease without esophagitis; Z98.51 Tubal ligation status; Z98.890 Other specified postprocedural states; Z88.0 Allergy status to penicillin; Z79.899 Other long term (current) drug therapy; X58.XXXA Exposure to other specified factors, initial encounter
CPT/HCPCS: 29827; 29826; 64415; 76942; C1713 ×2; J2250; J0330; J1100; J0690; J2405; J3010; J2795; J2704; J1790; J2001

== ENCOUNTER → 2023-12-02 | Outpatient (CLI) | payer MEDICARE, BC ==
--- NOTE | 2023-12-05 07:42 | BD ---
EXAMINATION TYPE: Axial Bone Density DATE OF EXAM: 12/02/2023 CLINICAL HISTORY: 73 years old Female. ICD-10 CODE: [id number] OSTEO OF RT HIP Height: 62.5 Weight: 216 FRAX RISK QUESTIONS: Family History (Parent hip fracture): yes History of Fracture in Adulthood: no Secondary Osteoporosis: no RISK FACTORS HISTORY OF: Surgery to Spine/Hip(right/left)/Wrist (right/left): no MEDICATIONS: Thyroid Medications: yes Which medication: Levothyroxine How Long: since 1977 EXAM MEASUREMENTS: Bone mineral densitometry was performed using the [employer] System. Bone mineral density as measured about the Lumbar spine is: ----- L1-L4(G/cm2): -0.5 T Score Values are as follows: ----- L1: -0.8 ----- L2: -0.7 ----- L3: 0.1 ----- L4: -0.9 ----- L1-L4: -0.5 Z Score Values are as follows: ----- L1: -0.1 ----- L2: 0.0 ----- L3: 0.8 ----- L4: -0.3 ----- L1-L4: 0.1 Bone mineral density has: Increased 11% since study of: 09-09-2021 Bone mineral density about the R hip (g/cm2): 0.845 Bone mineral density about the L hip (g/cm2): 0.845 T Score values are as follows: -----R Neck: -0.8 -----L Neck: -1.3 -----R Total: -1.3 -----L Total: -1.3 Z Score values are as follows: -----R Neck: 0.3 -----L Neck: -0.2 -----R Total: -0.4 -----L Total: -0.4 Bone mineral density has: Increased 4.3% since study of: 09-09-2021 FRAX%s: The graph provided illustrates a 15.0% chance for a major osteoporotic fx and a 6.2% chance f or the hips probability for fx in 10 years time. IMPRESSION: Osteopenia (T Score between -2.5 and -1). There is slightly increased risk of fracture and the patient may be considered for treatment. Re-Screen 2-5 years. NOTE: T-SCORE=SD OF THE YOUNG ADULT MEAN.
--- NOTE | 2023-12-05 07:49 | MM ---
Reason for Exam: Screening (asymptomatic). Last mammogram was performed 1 year(s) and 1 month(s) ago. Patient History: Menarche at age 13. First Full-Term at age 26. Postmenopausal. Other cancer, age 64. Risk Values: Shama 5 year model risk: 1.8%. NCI Lifetime model risk: 4.1%. Prior Study Comparison: 03/20/2019 Bilateral Screening Mammogram, [facility]. 09/09/2021 Bilateral Screening Mammogram, [facility]. 11/02/2022 Bilateral MG 3D screening mammo w/cad, [facility]. Tissue Density: The breast tissue is almost entirely fat. Findings: Analyzed By CAD. There is no suspicious group of microcalcifications or new suspicious mass. Overall Assessment: Negative, BI-RAD 1 Management: Screening Mammogram of both breasts in [address] [facility] will attempt to contact patient to return for supplemental views and ultrasound if indicated. Patient should continue monthly self-breast exams. A clinical breast exam by your physician is recommended on an annual basis. This exam should not preclude additional follow-up of suspicious palpable abnormalities. Note on Shama scores and lifetime risk: 1. A Shama score greater than 3% is considered moderate risk. If this is the case, consider specialist referral to assess eligibility for a risk reducing agent. 2. If overall lifetime risk for the development of breast cancer is 20% or higher, the patient may qualify for future screening with alternating mammogram and breast MRI. Electronically signed and approved by: Omar Ware DO
== END | disposition home or self-care (01) ==
LOC: RADBDWWP 14:26
PROVIDERS: ATTEND Internal Medicine
DX: Z12.31 Encounter for screening mammogram for malignant neoplasm of breast (principal); M85.89 Other specified disorders of bone density and structure, multiple sites
CPT/HCPCS: 77063; 77067; 77080

== ENCOUNTER → 2024-05-31 | Outpatient (CLI) | payer MEDICARE, BC ==
--- NOTE | 2024-05-31 18:01 | CA ---
Transthoracic Echo Report Name: Andreia Burnette Age: 74 Gender: F : 1950 Exam Date: 05/31/2024 14:17 Exam Location: [facility] Ht (in): 63 Wt (lb): 211 Ordering Physician: Alvin Clements MD Attending/Referring Phys: Alvin Clements MD Belt Conveyor Drier Negra Scott RDCS Procedure CPT: Indications: I34.0 NONRHEUMATIC MITRAL (VALVE) INSUFFICIENCY Cardiac Hx: Technical Quality: Fair Contrast 1: Total Dose (mL): Contrast 2: Total Dose (mL): MEASUREMENTS (Male / Female) Normal Values 2D ECHO LV Diastolic Diameter PLAX 4.7 cm 4.2 - 5.9 / 3.9 - 5.3 cm LV Systolic Diameter PLAX 3.0 cm IVS Diastolic Thickness 1.4 cm 0.6 - 1.0 / 0.6 - 0.9 cm LVPW Diastolic Thickness 1.2 cm 0.6 - 1.0 / 0.6 - 0.9 cm LV Relative Wall Thickness 0.6 RV Internal Dim ED PLAX 2.3 cm LA Systolic Diameter LX 5.4 cm 3.0 - 4.0 / 2.7 - 3.8 cm LV Diastolic Volume MOD BP 52.2 cm??? 67 - 155 / 56 - 104 cm??? LV Systolic Volume MOD BP 25.7 cm??? 22 - 58 / 19 - 49 cm??? LV Ejection Fraction MOD BP 50.9 % >= 55 % LV Cardiac Index MOD BP 1196.9 cm???/min???m??? LV Diastolic Volume MOD 4C 60.5 cm??? LV Systolic Volume MOD 4C 25.6 cm??? LV Ejection Fraction MOD 4C 57.7 % LV Cardiac Index MOD 4C 1574.2 cm???/min???m??? LV Diastolic Length 4C 7.1 cm LV Systolic Length 4C 6.1 cm LV Diastolic Volume MOD 2C 45.7 cm??? LV Systolic Volume MOD 2C 25.9 cm??? LV Ejection Fraction MOD 2C 43.3 % LV Cardiac Index MOD 2C 891.1 cm???/min???m??? LV Diastolic Length 2C 7.3 cm LV Systolic Length 2C 6.1 cm M-MODE Aortic Root Diameter MM 3.4 cm LA Systolic Diameter MM 4.9 cm LA Ao Ratio MM 1.4 AV Cusp Separation MM 1.9 cm DOPPLER AV Peak Velocity 170.5 cm/s AV Peak Gradient 11.6 mmHg Mitral E Point Velocity 155.2 cm/s Mitral A Point Velocity 2.3 cm/s Mitral E to A Ratio 66.6 MV Deceleration Time 243.6 ms MV E' Velocity 7.3 cm/s Mitral E to MV E' Ratio 21.2 TR Peak Velocity 213.1 cm/s TR Peak Gradient 18.2 mmHg Right Ventricular Systolic Press 23.2 mmHg FINDINGS Left Ventricle Left ventricular ejection fraction is estimated at 55-60%. Moderately increased septal wall thickness. Mildly increased posterior wall thickness. No obvious regional wall motion abnormalities. Left ventricular cavity size normal. Right Ventricle Normal right ventricular size and function. Right ventricular systolic pressure within normal limits. Right Atrium Mild right atrial dilatation. Left Atrium Moderate left atrial dilatation. Mitral Valve Mitral valve thickened. Moderate mitral regurgitation. No mitral stenosis. Aortic Valve Trileaflet aortic valve. No aortic valve stenosis or regurgitation. Diffuse thickening (sclerosis) of the aortic valve cusps without reduced excursion. Tricuspid Valve Structurally normal tricuspid valve. Mild tricuspid regurgitation. No tricuspid stenosis. Pulmonic Valve Structurally normal pulmonic valve. Mild pulmonic regurgitation. No pulmonic stenosis. Pericardium No pericardial or pleural effusion. Aorta Normal size aortic root and proximal ascending aorta. CONCLUSIONS Diagnosis mitral regurgitation Increased LV mass with preserved systolic function ejection fraction greater than 55% Moderate mitral regurgitation Aortic sclerosis Previewed by: Dr. Tim Chen MD (Electronically Signed) Final Date: 31 May 2024 18:00
== END | disposition home or self-care (01) ==
LOC: RADECHMAIN 14:05
PROVIDERS: ATTEND Internal Medicine
DX: I08.0 Rheumatic disorders of both mitral and aortic valves (principal)
CPT/HCPCS: 93306

== ENCOUNTER → 2024-05-31 | Outpatient (CLI) | payer MEDICARE, BC ==
--- NOTE | 2024-05-31 15:15 | US ---
EXAMINATION TYPE: US carotid duplex BILAT DATE OF EXAM: 05/31/2024 COMPARISON: US 2021 CLINICAL INDICATION: Female, 74 years old with history of I65.23 CAROTID STENOSIS; TECHNIQUE: Carotid duplex ultrasound examination. Indirect Doppler criteria was utilized. FINDINGS: EXAM MEASUREMENTS: RIGHT: Peak Systolic Velocity (PSV) cm/sec ----- Right CCA: 71.8 ----- Right ICA: 77.3 ----- Right ECA: 50.3 ICA/CCA ratio: 1.1 RIGHT: End Diastole cm/sec ----- Right CCA: 19.7 ----- Right ICA: 28.3 ----- Right ECA: 10.8 LEFT: Peak Systolic Velocity (PSV) cm/sec ----- Left CCA: 62.4 ----- Left ICA: 74.5 ----- Left ECA: 62.4 ICA/CCA ratio: 1.2 LEFT: End Diastole cm/sec ----- Left CCA: 18.2 ----- Left ICA: 25.0 ----- Left ECA: 10.3 VERTEBRALS (direction of flow): Right Vertebral: Antegrade Left Vertebral: Antegrade Rhythm: Normal No significant stenosis. Mild atherosclerotic plaque. IMPRESSION: No significant hemodynamic stenosis. Criteria for Assigning % of Stenosis / Diameter reduction (Estimation based on the indirect measurements of the internal carotid artery velocities (ICA PSV). 1. Normal (no stenosis)=ICA PSV < 125 cm/s: ratio < 2.0: ICA EDV<40 cm/s. 2. Less than 50% stenosis=ICA PSV < 125 cm/s: ratio < 2.0: ICA EDV<40 cm/s. 3. 50 to 69% stenosis=ICA PSV of 125 to 230 cm/s: ration 2.0 ? 4.0: ICA EDV 40-100 cm/s. 4. Greater than 70% stenosis to near occlusion= ICA PSV > 230 cm/s: ratio > 4.0: ICA EDV > 100 cm/s. 5. Near occlusion= ICA PSV velocities may be low or undetectable: variable ratio and ICA EDV. 6. Total occlusion=unable to detect flow.
== END | disposition home or self-care (01) ==
LOC: RADUSWWP 14:45
PROVIDERS: ATTEND Internal Medicine
DX: I65.23 Occlusion and stenosis of bilateral carotid arteries (principal)
CPT/HCPCS: 93880

== ENCOUNTER 2024-08-17 10:28 | Observation (INO) | payer MEDICARE, BC ==
--- NOTE | 2024-08-17 11:09 | ED ---
Chest Pain HPI - General Chief Complaint: Chest Pain Stated Complaint: Chest pain Time Seen by Provider: 08/17/24 11:09 Source: patient Mode of arrival: ambulatory Limitations: no limitations - History of Present Illness Initial Comments: 74-year-old female presented to ER with a chief complaint of chest discomfort. Patient has a past medical history of hypertension, surgically absent thyroid, hyperlipidemia and GERD. Patient states this morning around 10 AM while she was running errands she started to experience a sharp centralized chest pain. She does report radiation to her back. She states the pain is now an achy pressure in her central chest rating it a 2 out of 10. She denies any shortness of breath, dizziness, lightheadedness. Denies any nausea or vomiting. Patient states she has been following up with Dr. Clements as she has been having intermittent chest pains for the past couple of months. She states echocardiogram and carotid evaluation were negative. Patient denies any other complaints. - Related Data Home Medications Medication Instructions Recorded Confirmed Levothyroxine Sodium [Synthroid] 150 mcg PO DAILY 08/30/16 08/17/24 Liothyronine Sodium [Cytomel] 5 mcg PO DAILY 08/30/16 08/17/24 allopurinoL [Allopurinol] 300 mg PO W/BRKFST 08/30/16 08/17/24 Alendronate Sodium [Fosamax] 70 mg PO TU 06/25/22 08/17/24 Atorvastatin [Lipitor] 40 mg PO Q48H 06/25/22 08/17/24 Calcium Carbonate [Calcium] 600 mg PO W/LUNCH 06/25/22 08/17/24 Cholecalciferol [Vitamin D3 (125 125 mcg PO W/LUNCH 06/25/22 08/17/24 Mcg = 5000 Iu)] Losartan [Cozaar] 50 mg PO W/BRKFST 02/07/23 08/17/24 Ascorbic Acid [Vitamin C] 500 mg PO W/LUNCH 08/17/24 08/17/24 Ginkgo Biloba [place] Extract [Ginkgo 125 mg PO W/LUNCH 08/17/24 08/17/24 Biloba] Glucosamine Sulfate 500 mg PO W/LUNCH 08/17/24 08/17/24 Multivit-Min/Iron/Folic/Lutein 1 tab PO W/LUNCH 08/17/24 08/17/24 [Centrum Silver Women Tablet] Omeprazole [PriLOSEC] 40 mg PO DAILY 08/17/24 08/17/24 Turmeric Root Extract [Turmeric] 500 mg PO W/LUNCH 08/17/24 08/17/24 Ubidecarenone [Coenzyme Q10] 200 mg PO W/LUNCH 08/17/24 08/17/24 Zinc Gluconate [Zinc] 50 mg PO W/LUNCH 08/17/24 08/17/24 Allergies Allergy/AdvReac Type Severity Reaction Status Date / Time Penicillins Allergy Rash/Hives Verified 08/17/24 10:35 Review of Systems ROS Statement: Those systems with pertinent positive or pertinent negative responses have been documented in the HPI. ROS Other: All systems not noted in ROS Statement are negative. EKG Findings - EKG Comments: EKG Findings:: EKG taken at 10: 44 showing sinus rhythm. No acute ST segment or T wave abnormalities. Ventricular rate 63, IA interval 166, QRS duration 86, QT/QTc 439/447. Past Medical History Past Medical History: GERD/Reflux, Hypertension, Thyroid Disorder Additional Past Medical History / Comment(s): GOUT History of Any Multi-Drug Resistant Organisms: None Reported Past Surgical History: Orthopedic Surgery Additional Past Surgical History / Comment(s): thyroidecetomy, bilat. total knee replacements, choley, , pre-cancerous lesions., avi cataracts. Past Anesthesia/Blood Transfusion Reactions: No Reported Reaction Past Psychological History: No Psychological Hx Reported Smoking Status: Never smoker Past Alcohol Use History: Occasional Past Drug Use History: None Reported - Past Family History Father Family Medical History: Coronary Artery Disease (CAD), CVA/TIA, Diabetes Mellitus Mother Family Medical History: Coronary Artery Disease (CAD) General Exam Limitations: no limitations General appearance: alert, in no apparent distress Respiratory exam: Present: normal lung sounds bilaterally. Absent: respiratory distress, wheezes, rales, rhonchi, stridor Cardiovascular Exam: Present: regular rate, normal rhythm, normal heart sounds. Absent: systolic murmur, diastolic murmur, rubs, gallop, clicks Extremities exam: Present: normal inspection, full ROM, normal capillary refill. Absent: tenderness, pedal edema, joint swelling, calf tenderness Neurological exam: Present: alert, oriented X3, CN II-XII intact Skin exam: Present: warm, dry, intact, normal color. Absent: rash Course Vital Signs 08/17/24 08/17/24 08/17/24 10:33 10:49 10:51 Temperature 98 F Pulse Rate 66 62 Pulse Rate [ 63 Drum Maker ] Respiratory 20 16 Rate Blood Pressure 142/85 141/75 O2 Sat by Pulse 100 99 Oximetry 08/17/24 11:46 Temperature Pulse Rate 57 L Pulse Rate [ Drum Maker ] Respiratory 18 Rate Blood Pressure 124/64 O2 Sat by Pulse 99 Oximetry - Reevaluation(s) Reevaluation #1: 08/17/24 12:29 Heart score 5 08/17/24 12:[address] Clements for admission. Chest Pain MDM - MDM Was pt. sent in by a medical professional or institution (, PA, FENCE BUILDER, urgent care, hospital, or half-way...) When possible be specific @ -No Did you speak to anyone other than the patient for history (EMS, parent, family, police, friend...)? What history was obtained from this source @ -No Did you review nursing and triage notes (agree or disagree)? Why? @ -I reviewed and agree with nursing and triage notes Were old charts reviewed (outside hosp., previous admission, EMS record, old EKG, old radiological studies, urgent care reports/EKG's, half-way records)? Report findings @ -No old charts were reviewed Differential Diagnosis (chest pain, altered mental status, abdominal pain women, abdominal pain men, vaginal bleeding, weakness, fever, dyspnea, syncope, headache, dizziness, GI bleed, back pain, seizure, CVA, palpatations, mental health, musculoskeletal)? @ -Differential Chest Pain: Stable Angina, Unstable Angina, STEMI, NSTEMI Aortic Dissection, Pneumothorax, Musculoskeletal, Esophageal Spasm GERD, Cholecystitis, Pancreatitis, Zoster, this is not meant to be an all-inclusive list. EKG interpreted by me (3pts min.). @ -As above X-rays interpreted by me (1pt min.). @ -CXR interpreted by me negative for acute cardiopulmonary process. CT interpreted by me (1pt min.). @ -None done U/S interpreted by me (1pt. min.). @ -None done What testing was considered but not performed or refused? (CT, X-rays, U/S, labs)? Why? @ -None What meds were considered but not given or refused? Why? @ -None Did you discuss the management of the patient with other professionals (professionals i.e. , PA, FENCE BUILDER, lab, RT, psych nurse, social security benefits interviewer, construction producer, teacher, senior commercial loan officer, renal case manager)? Give summary @ -Yes, case discussed with Dr. Clements for admission. Was smoking cessation discussed for >3mins.? @ -No Was critical care preformed (if so, how long)? @ -No Were there social determinants of health that impacted care today? How? (Homelessness, low income, unemployed, alcoholism, drug addiction, transportation, low edu. Level, literacy, decrease access to med. care, custodial, rehab)? @ -No Was there de-escalation of care discussed even if they declined (Discuss DNR or withdrawal of care, Hospice)? DNR status @ -No What co-morbidities impacted this encounter? (DM, HTN, Smoking, COPD, CAD, Ca ncer, CVA, ARF, Chemo, Hep., AIDS, mental health diagnosis, sleep apnea, morbid obesity)? @ -Hypertension, hyperlipidemia, surgically absent thyroid, obese Was patient admitted / discharged? Hospital course, mention meds given and route, prescriptions, significant lab abnormalities, going to OR and other pertinent info. @ -Admitted. 74-year-old female presenting to the ER with a chief complaint of chest discomfort. History and physical exam completed. Vitals within normal limits. Patient in no signs of acute distress and nontoxic-appearing. Exam benign. Laboratory studies unremarkable. Troponin undetectable. D-dimer 0.29, TSH less than 0.015 with a free T4 of 2.22. EKG showing no acute evidence of infarct. Chest x-ray interpreted by me negative for acute cardiopulmonary process. Heart score 5. Due to patient's comorbidities and age admission was considered and discussed with Dr. Clements for cardiac rule out. Patient received 1 L IV fluids in the ER. Patient agreeable for admission. Patient admitted in stable condition. Case discussed with the attending, Dr. Bullock. Undiagnosed new problem with uncertain prognosis? @ -No Drug Therapy requiring intensive monitoring for toxicity (Heparin, Nitro, Insulin, Cardizem)? @ -No Were any procedures done? @ -No Diagnosis/symptom? @ -Chest pain Acute, or Chronic, or Acute on Chronic? @ -Acute Uncomplicated (without systemic symptoms) or Complicated (systemic symptoms)? @ -Uncomplicated Side effects of treatment? @ -No Exacerbation, Progression, or Severe Exacerbation? @ -No Poses a threat to life or bodily function? How? (Chest pain, [place], [place], pneumonia, PE, COPD, DKA, ARF, appy, cholecystitis, CVA, Diverticulitis, Homicidal, Suicidal, threat to staff... and all critical care pts) @ -Yes, chest pain can be ACS which is life-threatening. Disposition Clinical Impression: Chest pain, History of thyroidectomy Disposition: ADMITTED IP TO THIS HOSP Condition: Stable Referrals: Alvin Clements MD [Primary Care Provider] - 1-2 days Time of Disposition: 12:43
[2024-08-17] MEDS: SODIUM CHLORIDE 0.9% 1,000 ML IV STA (11:50)
[2024-08-17 12:01] LABS: ALT 22 U/L (4-34); AST 31 U/L (14-36); African American GFR (CKD) 81 (>60 ml/min/1.73 sqM); Albumin 3.9 g/dL (3.5-5.0); Alkaline Phosphatase 73 U/L (38-126); Anion Gap 4 mmol/L; Blood Urea Nitrogen 24 mg/dL (7-17); Calcium 9.4 mg/dL (8.4-10.2); Carbon Dioxide 23 mmol/L (22-30); Chloride 110 mmol/L (98-107); Glucose 99 mg/dL (74-99); Magnesium 1.9 mg/dL (1.6-2.3); Non-African American GFR(CKD) 70 (>60 ml/min/1.73 sqM); Potassium 4.5 mmol/L (3.5-5.1); Sodium 137 mmol/L (137-145); Total Bilirubin 0.6 mg/dL (0.2-1.3); Total Protein 6.9 g/dL (6.3-8.2)
[2024-08-17 12:13] LABS: Basophils % (A) 0 %; Eosinophils # (A) 0.2 k/uL (0-0.7); Eosinophils % (A) 2 %; HCT 38.6 % (34.0-46.0); HGB 12.1 gm/dL (11.4-16.0); Hypochromasia Slight; Lymphocytes # (A) 2.7 k/uL (1.0-4.8); Lymphocytes % (A) 42 %; MCH 30.2 pg (25.0-35.0); MCHC 31.5 g/dL (31.0-37.0); Monocytes # (A) 0.4 k/uL (0-1.0); Monocytes % (A) 6 %; Neutrophils # (A) 2.9 k/uL (1.3-7.7); Neutrophils % (A) 45 %; Platelet Count 314 k/uL (150-450); RBC 4.02 m/uL (3.80-5.40); RDW 14.9 % (11.5-15.5); WBC 6.5 k/uL (3.8-10.6)
[2024-08-17 12:16] LABS: INR 0.9 (<1.2); Partial Thromboplastin Time 22.4 sec (22.0-30.0); Prothrombin Time 10.4 sec (10.0-12.5)
--- NOTE | 2024-08-17 12:26 | XR ---
EXAMINATION TYPE: XR chest 2V DATE OF EXAM: 08/17/2024 12:16 PM CLINICAL INDICATION: Female, 74 years old with history of Chest Pain; [facility] COMPARISON: Chest radiographs from 06/25/2022 TECHNIQUE: XR chest 2V Frontal view of the chest. FINDINGS: Lungs/Pleura: There is no evidence of pleural effusion, focal consolidation, or pneumothorax. Pulmonary vascularity: Unremarkable. Heart/mediastinum: Cardiomediastinal silhouette is unremarkable. Musculoskeletal: No acute osseous pathology. IMPRESSION: No acute cardiopulmonary disease/process. [facility], , 08/17/2024 12:24 PM
[2024-08-17] MEDS ORDERED: ONDANSETRON 4 MG/2 ML VIAL IVP PRN (12:41)
[2024-08-17] MEDS ORDERED: NALOXONE 0.4 MG/ML 1 ML VIAL IV PRN (12:41)
[2024-08-17] MEDS ORDERED: ACETAMINOPHEN TAB 325 MG TAB PO PRN (12:41)
[2024-08-17 13:06] LABS: T4, Free (Free Thyroxine) 2.22 ng/dL (0.78-2.19)
[2024-08-17] MEDS: SODIUM CHLORIDE 0.9% 1,000 ML IV SCH (15:37)
[2024-08-17] MEDS: ATORVASTATIN 40 MG TAB PO SCH (20:28)
[2024-08-17] MEDS: HEPARIN SODIUM,PORCINE 5,000 UNIT/ML 1 ML VIAL SQ SCH (23:14)
[2024-08-18] MEDS: LOSARTAN 50 MG TAB PO SCH (06:31)
[2024-08-18] MEDS: PANTOPRAZOLE 40 MG TABLET PO SCH (06:31)
[2024-08-18] MEDS: LEVOTHYROXINE 75 MCG TAB PO SCH (06:31)
[2024-08-18] MEDS: allopurinoL 300 MG TAB PO SCH (06:31)
[2024-08-18 06:34] VITALS: RESP 17
[2024-08-18 07:25] LABS: ALT 22 U/L (4-34); AST 30 U/L (14-36); African American GFR (CKD) >90 (>60 ml/min/1.73 sqM); Albumin 3.8 g/dL (3.5-5.0); Albumin/Globulin Ratio 1.2; Alkaline Phosphatase 65 U/L (38-126); Anion Gap 5 mmol/L; Blood Urea Nitrogen 16 mg/dL (7-17); Calcium 9.1 mg/dL (8.4-10.2); Carbon Dioxide 26 mmol/L (22-30); Chloride 109 mmol/L (98-107); Globulin 3.1 g/dL; Glucose 89 mg/dL (74-99); Non-African American GFR(CKD) 86 (>60 ml/min/1.73 sqM); Potassium 4.3 mmol/L (3.5-5.1); Sodium 140 mmol/L (137-145); Total Bilirubin 0.6 mg/dL (0.2-1.3); Total Protein 6.9 g/dL (6.3-8.2)
[2024-08-18] MEDS: LIOTHYRONINE SODIUM 5 MCG TAB PO SCH (09:17)
[2024-08-18 11:03] LABS: Basophils # (A) 0.03 X 10*3/uL (0.00-0.10); Basophils % (A) 0.4 %; Eosinophils # (A) 0.13 X 10*3/uL (0.04-0.35); Eosinophils % (A) 1.7 %; HCT 39.9 % (37.2-46.3); HGB 12.7 g/dL (12.0-15.0); Lymphocytes # (A) 3.92 X 10*3/uL (0.90-5.00); Lymphocytes % (A) 52.3 %; MCH 30.5 pg (27.0-32.0); MCHC 31.8 g/dL (32.0-37.0); MCV 95.9 FL (80.0-97.0); Mean Platelet Volume 11.2 FL (9.5-12.2); Monocytes # (A) 0.54 X 10*3/uL (0.20-1.00); Monocytes % (A) 7.2 %; NRBC Per 100 WBC 0 X 10*3/uL (0.00-0.01); Neutrophils # (A) 2.86 X 10*3/uL (1.80-7.70); Neutrophils % (A) 38.3 %; Platelet Count 323 X 10*3/uL (140-440); RBC 4.16 X 10*6/uL (4.10-5.20); RDW 15.9 % (11.5-14.5); WBC 7.49 X 10*3/uL (4.50-10.00)
--- NOTE | 2024-08-18 12:10 | P.CRDCN ---
History of Present Illness Consult date: 08/18/24 History of present illness: HISTORY OF PRESENTING ILLNESS Patient with past medical history of hypothyroidism, obesity, hypertension, dyslipidemia presented to cardiology clinic because of atypical substernal chest pressure when she was running her errands. She describes it is as substernal in nature, 3-4/10 in intensity. Denies any diaphoresis, nausea vomiting. Denies any passing out, palpitations. Symptoms have somewhat resolved in the hospital. They have not reoccurred since this morning. She has been evaluated for this on an outpatient basis by her primary care physician and she has been ordered a outpatient stress test for which she is waiting for to be scheduled. Admission ECG does not show signs of ischemia at this time. She is in sinus rhythm. Troponin x 3 are negative, D-dimer is negative, TSH is less than 0.015, T4 is 2.22 which is high. REVIEW OF SYSTEMS 14 point review of system is negative except what is mentioned above in HPI. PHYSICAL EXAMINATION Vital signs reviewed. Head: Normocephalic. Eyes: Sclerae nonicteric. Neck: Brisk carotid upstroke, no jugular venous distention. Lungs: Clear to auscultation. Heart: Regular rate and rhythm, S1-S2, no S3, no murmur or rub. Abdomen: Soft nontender, positive bowel sounds. Extremities: No edema, intact distal pulses. Neuro: Alert, oritented, no focal deficits. Detailed neuro exam was not performed. ASSESSMENT Atypical chest pain Rule out of acute coronary syndrome with negative troponin ECG and resolution of symptoms Moderate mitral regurgitation Hypertension Dyslipidemia Obesity Hypothyroidism, on levothyroxine supplementation. Her TSH is low and T4 is high PLAN Recommend outpatient cardiac stress testing which is already scheduled for the patient. I reviewed patient's echocardiogram which shows moderate mitral regurgitation however patient does not have any significant congestive heart failure symptoms or any arrhythmias at this time. Her ECG shows normal sinus rhythm. Clinically she does not have any signs of congestive heart failure. She reports that her chest pain is resolved. Okay to be discharged from cardiac standpoint with recommended outpatient fo llow-up and a outpatient stress test Recommend primary care physician to readjust her thyroid supplementation Basilio Canela MD, FACC, RPVI Thank you for allowing [facility] to participate in this patient's care. Feel free to reach out in case of any followup questions. Past Medical History Past Medical History: GERD/Reflux, Hypertension, Thyroid Disorder Additional Past Medical History / Comment(s): GOUT History of Any Multi-Drug Resistant Organisms: None Reported Past Surgical History: Orthopedic Surgery Additional Past Surgical History / Comment(s): thyroidecetomy, bilat. total knee replacements, choley, , pre-cancerous lesions., avi cataracts. Past Anesthesia/Blood Transfusion Reactions: No Reported Reaction Past Psychological History: No Psychological Hx Reported Smoking Status: Never smoker Past Alcohol Use History: Occasional Past Drug Use History: None Reported - Past Family History Father Family Medical History: Coronary Artery Disease (CAD), CVA/TIA, Diabetes Mellitus Mother Family Medical History: Coronary Artery Disease (CAD) Medications and Allergies Home Medications Medication Instructions Recorded Confirmed Type Levothyroxine Sodium [Synthroid] 150 mcg PO DAILY 08/30/16 08/17/24 History Liothyronine Sodium [Cytomel] 5 mcg PO DAILY 08/30/16 08/17/24 History allopurinoL [Allopurinol] 300 mg PO W/BRKFST 08/30/16 08/17/24 History Alendronate Sodium [Fosamax] 70 mg PO TU 06/25/22 08/17/24 History Atorvastatin [Lipitor] 40 mg PO Q48H 06/25/22 08/17/24 History Calcium Carbonate [Calcium] 600 mg PO W/LUNCH 06/25/22 08/17/24 History Cholecalciferol [Vitamin D3 (125 125 mcg PO W/LUNCH 06/25/22 08/17/24 History Mcg = 5000 Iu)] Losartan [Cozaar] 50 mg PO W/BRKFST 02/07/23 08/17/24 History Ascorbic Acid [Vitamin C] 500 mg PO W/LUNCH 08/17/24 08/17/24 History Ginkgo Biloba [place] Extract [Ginkgo 125 mg PO W/LUNCH 08/17/24 08/17/24 History Biloba] Glucosamine Sulfate 500 mg PO W/LUNCH 08/17/24 08/17/24 History Multivit-Min/Iron/Folic/Lutein 1 tab PO W/LUNCH 08/17/24 08/17/24 History [Centrum Silver Women Tablet] Omeprazole [PriLOSEC] 40 mg PO DAILY 08/17/24 08/17/24 History Turmeric Root Extract [Turmeric] 500 mg PO W/LUNCH 08/17/24 08/17/24 History Ubidecarenone [Coenzyme Q10] 200 mg PO W/LUNCH 08/17/24 08/17/24 History Zinc Gluconate [Zinc] 50 mg PO W/LUNCH 08/17/24 08/17/24 History Allergies Allergy/AdvReac Type Severity Reaction Status Date / Time Penicillins Allergy Rash/Hives Verified 08/17/24 10:35 Physical Exam Vitals: Vital Signs Temp Pulse Pulse Resp BP BP Pulse Ox 08/18/24 09:17 17 08/18/24 06:34 98.4 F 68 17 140/72 99 08/18/24 00:53 98.1 F 67 16 137/67 99 08/17/24 20:00 98.2 F 72 18 128/66 98 08/17/24 19:50 98.0 F 70 17 140/78 98 08/17/24 19:00 80 17 140/56 98 08/17/24 17:30 67 16 149/69 99 08/17/24 15:31 98 F 64 20 147/69 99 Intake and Output 08/17/24 08/18/24 08/18/24 22:59 06:59 14:59 Intake Total 560 0 Balance 560 0 Intake: Oral 560 0 Other: Voiding Method Toilet Toilet # Voids 3 2 Weight 97.522 kg Results 08/18/24 05:30 08/18/24 05:30 Cardiac Enzymes 08/17/24 08/17/24 08/18/24 Range/Units 11:46 11:46 05:30 AST 31 30 (14-36) U/L Troponin I <0.012 (0.000-0.034) ng/mL 08/18/24 08/18/24 Range/Units 05:30 09:24 AST (14-36) U/L Troponin I <0.012 <0.012 (0.000-0.034) ng/mL Coagulation 08/17/24 Range/Units 11:46 PT 10.4 (10.0-12.5) sec APTT 22.4 (22.0-30.0) sec CBC 08/17/24 08/18/24 Range/Units 11:46 05:30 WBC 6.5 7.49 (3.8-10.6) k/uL RBC 4.02 4.16 (3.80-5.40) m/uL Hgb 12.1 12.7 (11.4-16.0) gm/dL Hct 38.6 39.9 (34.0-46.0) % Plt Count 314 323 (150-450) k/uL Comprehensive Metabolic Panel 08/17/24 08/18/24 Range/Units 11:46 05:30 Sodium 137 140 (137-145) mmol/L Potassium 4.5 4.3 (3.5-5.1) mmol/L Chloride 110 H 109 H (98-107) mmol/L Carbon Dioxide 23 26 (22-30) mmol/L BUN 24 H 16 (7-17) mg/dL Creatinine 0.82 0.67 (0.52-1.04) mg/dL Glucose 99 89 (74-99) mg/dL Calcium 9.4 9.1 (8.4-10.2) mg/dL AST 31 30 (14-36) U/L ALT 22 22 (4-34) U/L Alkaline Phosphatase 73 65 (38-126) U/L Total Protein 6.9 6.9 (6.3-8.2) g/dL Albumin 3.9 3.8 (3.5-5.0) g/dL Current Medications Generic Name Dose Route Start Last Admin Trade Name Freq PRN Reason Stop Dose Admin Acetaminophen 650 mg 08/17/24 12:41 Acetaminophen Tab 325 Mg Tab PO Q6HR PRN Mild Pain or Fever > 100.5 Allopurinol 300 mg 08/18/24 07:30 08/18/24 06:31 Allopurinol 300 Mg Tab PO 300 mg W/BRKFST [facility] Administration Ascorbic Acid 500 mg 08/18/24 12:30 Ascorbic Acid 500 Mg Tab PO W/LUNCH [facility] Atorvastatin Calcium 40 mg 08/17/24 21:00 08/17/24 20:28 Atorvastatin 40 Mg Tab PO Not Given Q48H [facility] Calcium Carbonate/Glycine 500 mg 08/18/24 12:30 Calcium Carbonate 500 Mg Chewable PO W/LUNCH [facility] Cholecalciferol 125 mcg 08/18/24 12:30 Cholecalciferol 125 Mcg (5000 Iu) Tablet PO W/LUNCH [facility] Heparin Sodium (Porcine) 5,000 unit 08/18/24 00:00 08/18/24 09:17 Heparin Sodium,Porcine 5,000 Unit/Ml 1 Ml Vial SQ 5,000 unit Q8HR [facility] Administration Sodium Chloride 1,000 mls @ 75 mls/hr 08/17/24 12:45 08/18/24 11:52 Saline 0.9% IV 75 mls/hr .[id number] [facility] Administration Levothyroxine Sodium 150 mcg 08/18/24 06:30 08/18/24 06:31 Levothyroxine 75 Mcg Tab PO 150 mcg DAILY@0630 [facility] Administration Liothyronine Sodium 5 mcg 08/18/24 09:00 08/18/24 09:17 Liothyronine Sodium 5 Mcg Tab PO 5 mcg DAILY [facility] Administration Losartan Potassium 50 mg 08/18/24 07:30 08/18/24 06:31 Losartan 50 Mg Tab PO 50 mg W/BRKFST [facility] Administration Multivitamins 1 each 08/18/24 12:30 Multivitamins, Thera 1 Each Tab PO W/LUNCH [facility] Naloxone HCl 0.2 mg 08/17/24 12:41 Naloxone 0.4 Mg/Ml 1 Ml Vial IV Q2M PRN Opioid Reversal Non-Formulary Medication 70 mg 08/21/24 09:00 Alendronate Sodium [Fosamax] PO TU [facility] Ondansetron HCl 4 mg 08/17/24 12:41 Ondansetron 4 Mg/2 Ml Vial IVP Q8HR PRN Nausea And Vomiting Pantoprazole Sodium 40 mg 08/18/24 07:30 08/18/24 06:31 Pantoprazole 40 Mg Tablet PO 40 mg AC-BRKFST [facility] Administration Zinc Sulfate 220 mg 08/18/24 12:30 Zinc Sulfate 220 Mg Cap PO W/LUNCH [facility] Intake and Output 08/17/24 08/18/24 08/18/24 22:59 06:59 14:59 Intake Total 560 0 Balance 560 0 Intake: Oral 560 0 Other: Voiding Method Toilet Toilet # Voids 3 2 Weight 97.522 kg 08/18/24 05:30 08/18/24 05:30
[2024-08-18] MEDS ORDERED: GINKGO BILOBA LEAF EXTRACT PO SCH (12:30)
[2024-08-18] MEDS ORDERED: NON FORMULARY DRUG (Turmeric Root Extract [Turmeric] 500 MG Tablet) PO SCH (12:30)
[2024-08-18] MEDS ORDERED: NON FORMULARY DRUG (Ubidecarenone [Coenzyme Q10] 200 MG Capsule) PO SCH (12:30)
[2024-08-18] MEDS ORDERED: NON FORMULARY DRUG (Glucosamine Sulfate 500 MG Cap) PO SCH (12:30)
[2024-08-18] MEDS: ZINC SULFATE 220 MG CAP PO SCH (12:57)
[2024-08-18] MEDS: CHOLECALCIFEROL 125 MCG (5000 IU) TABLET PO SCH (12:57)
[2024-08-18] MEDS: MULTIVITAMINS, THERA 1 EACH TAB PO SCH (12:57)
[2024-08-18] MEDS: CALCIUM CARBONATE 500 MG CHEWABLE PO SCH (12:57)
[2024-08-18] MEDS: ASCORBIC ACID 500 MG TAB PO SCH (12:57)
[2024-08-18 14:02] VITALS: BP 122/64; PULSE 87; TEMP 97.7
--- NOTE | 2024-08-18 15:00 | P.HPIM ---
History of Present Illness H&P Date: 08/17/24 Chief Complaint: Chest pain HISTORY OF PRESENT ILLNESS: This is a 74-year-old female patient of mine with a previous medical history significant for hypertension and hypertensive cardiovascular disease, history of hypothyroidism, osteoarthritis, obesity, patient presented to the emergency department at [facility] because of left-sided chest pain that started when she was running some errands yesterday, patient was seen in my office not long ago, she presented with similar symptoms, she had an echocardiogram that showed moderate mitral regurgitation without evidence of acute wall motion abnormalities, she did also have an ultrasound of the carotid that was negative, but because of her presentation patient she came to the emergency department for evaluation and she wanted to make sure her heart is doing okay, EKG did not show evidence of acute ST-T wave changes, cardiac enzymes were negative, but the patient was admitted to the hospital as an o bservation for evaluation by cardiology. REVIEW OF SYSTEMS: Constitutional: No documented fever, no chills, no night sweats. No weight change. No weakness, fatigue or lethargy. No daytime sleepiness. EENT: No headache. No blurred vision or double vision, no loss of vision. No loss of Hearing, no ringing in the ears, no dizziness. No nasal drainage or congestion. No epistaxis. No sore throat. Lungs: No shortness of breath, no cough, no sputum production. No wheezing. Reports dyspnea with activity. Cardiovascular: Positive for chest pain, no lower extremity edema. No palpitations. No paroxysmal nocturnal dyspnea. No orthopnea. No lightheadedness or dizziness. No syncopal episodes. Abdominal: Reports abdominal pain. No nausea, vomiting. No diarrhea. No constipation. No bloody or tarry stools reports loss of appetite. Genitourinary: No dysuria, increased frequency, urgency. No urinary retention. Musculoskeletal: No myalgias. No muscle weakness, no gait dysfunction, no frequent falls. No back pain. No neck pain. Integumentary: No wounds, no lesions. No rash or pruritus. No unusual bruising. No change in hair or nails. Neurologic: No aphasia. No facial droop. No change in mentation. No head injury. No headache. No paralysis. No paresthesia. Psychiatric: No depression. No anxiety. No mood swings. Endocrine: No abnormal blood sugars. No weight change. PAST MEDICAL HISTORY: Hypertension and hypertensive cardiovascular disease. Mixed hyperlipidemia. Hypothyroidism. Osteoarthritis. Obesity. Idiopathic gout. GERD with esophagitis. Irritable bowel syndrome with diarrhea. PAST SURGICAL HISTORY: Bilateral total knee arthroplasty 2014 Cholecystectomy 1984 Thyroidectomy 1976 1975 Colonoscopy with EGD 2014 Right shoulder surgery for 2022 SOCIAL HISTORY: Patient is a lifelong non-smoker, she denies any alcohol ingestion, she denies any drug use abuse, she lives with her . FAMILY HISTORY: Father at the age of 72 from CAD and also had history of diabetes mellitus type 2 hypertension hyperlipidemia lipidemia patient also had a CVA and dementia mother at the age of 72 from severe osteoporosis dementia and she had h istory of hypertension patient has 1 son alive and well with Crohn disease. PHYSICAL EXAMINATION: General: 74-year-old female laying down in bed in no apparent distress HEENT: Head is atraumatic, normocephalic, pupils were equal round reactive to light and recommendation, extraocular muscle movement were intact, sclera nonicteric, conjunctivae were pale, mucous membranes of the mouth are somewhat dry. Neck: Supple, no JVP, normal carotid upstroke bilaterally, no lymphadenopathy. Chest: Decreased breath sounds at the bases, few rhonchi, no expiratory wheezes, no chest wall tenderness, no intercostal retractions. Heart: First heart sound is normal, second heart sounds normal there is systolic ejection murmur 2 over systolic in the left sternal border. Abdomen: Soft, nontender, nondistended, positive bowel sounds. Extremities: There is no edema no calf tenderness DP +2 bilaterally. Neurologic examination: Patient is awake alert and oriented x3, cranial nerves II-12 appear grossly intact, muscle power were 5 out of 5 in upper extremities and 5 out of 5 in bilateral lower extremities, deep tendon reflexes normal bilaterally. ASSESSMENT AND PLAN: 1. Chest pain likely noncardiac patient did have a few risk factor for coronary artery disease, however her twelve-lead EKG did not show evidence of acute abnormalities, cardiac exams are negative, patient will be kept in the hospital as an observation, she will follow-up with cardiology tomorrow morning, most likely will need to have a stress test as an outpatient, patient did have an echocardiogram that was done as an outpatient that showed normal ejection fraction with moderate mitral regurgitation without wall motion abnormalities. 2. Hypertension and hypertensive cardiovascular disease. Continue patient on losartan 50 mg once every day, monitor the patient blood pressure very closely. 3. Mixed hyperlipidemia. Continue patient on atorvastatin 40 mg once every day, monitor the patient lipid panel, keep LDL 55-70. 4. Hypothyroidism. Continue patient on Synthroid 150 mcg orally once every day as well as Cytomel 5 mcg orally once every day, TSH a bit suppressed, we will monitor as an outpatient. 5. History of gout. Continue patient on allopurinol 300 mg orally once every day. 6. GERD with esophagitis. Continue pantoprazole 40 mg once every day. 7. Irritable bowel syndrome with diarrhea. Continue patient on current treatment plan. Use fiber in the diet. 8. DVT prophylaxis. Continue patient on heparin 5000 units subcutaneously every 8 hours. 9. GI prophylaxis. Continue patient on PPI. 10. Admit to inpatient. Estimated length of stay 2 midnights. Past Medical History Past Medical History: GERD/Reflux, Hypertension, Thyroid Disorder Additional Past Medical History / Comment(s): GOUT History of Any Multi-Drug Resistant Organisms: None Reported Past Surgical History: Orthopedic Surgery Additional Past Surgical History / Comment(s): thyroidecetomy, bilat. total knee replacements, choley, , pre-cancerous lesions., avi cataracts. Past Anesthesia/Blood Transfusion Reactions: No Reported Reaction Past Psychological History: No Psychological Hx Reported Smoking Status: Never smoker Past Alcohol Use History: Occasional Past Drug Use History: None Reported - Past Family History Father Family Medical History: Coronary Artery Disease (CAD), CVA/TIA, Diabetes Mellitus Mother Family Medical History: Coronary Artery Disease (CAD) Medications and Allergies Home Medications Medication Instructions Recorded Confirmed Type Levothyroxine Sodium [Synthroid] 150 mcg PO DAILY 08/30/16 08/17/24 History Liothyronine Sodium [Cytomel] 5 mcg PO DAILY 08/30/16 08/17/24 History allopurinoL [Allopurinol] 300 mg PO W/BRKFST 08/30/16 08/17/24 History Alendronate Sodium [Fosamax] 70 mg PO TU 06/25/22 08/17/24 History Atorvastatin [Lipitor] 40 mg PO Q48H 06/25/22 08/17/24 History Calcium Carbonate [Calcium] 600 mg PO W/LUNCH 06/25/22 08/17/24 History Cholecalciferol [Vitamin D3 (125 125 mcg PO W/LUNCH 06/25/22 08/17/24 History Mcg = 5000 Iu)] Losartan [Cozaar] 50 mg PO W/BRKFST 02/07/23 08/17/24 History Ascorbic Acid [Vitamin C] 500 mg PO W/LUNCH 08/17/24 08/17/24 History Ginkgo Biloba [place] Extract [Ginkgo 125 mg PO W/LUNCH 08/17/24 08/17/24 History Biloba] Glucosamine Sulfate 500 mg PO W/LUNCH 08/17/24 08/17/24 History Multivit-Min/Iron/Folic/Lutein 1 tab PO W/LUNCH 08/17/24 08/17/24 History [Centrum Silver Women Tablet] Omeprazole [PriLOSEC] 40 mg PO DAILY 08/17/24 08/17/24 History Turmeric Root Extract [Turmeric] 500 mg PO W/LUNCH 08/17/24 08/17/24 History Ubidecarenone [Coenzyme Q10] 200 mg PO W/LUNCH 08/17/24 08/17/24 History Zinc Gluconate [Zinc] 50 mg PO W/LUNCH 08/17/24 08/17/24 History Allergies Allergy/AdvReac Type Severity Reaction Status Date / Time Penicillins Allergy Rash/Hives Verified 08/17/24 10:35 Physical Exam Vitals: Vital Signs Temp Pulse Pulse Resp BP Pulse Ox 08/17/24 15:31 98 F 64 20 147/69 99 08/17/24 11:46 57 L 18 124/64 99 08/17/24 10:51 63 08/17/24 10:49 62 16 141/75 99 08/17/24 10:33 98 F 66 20 142/85 100 Intake and Output 08/17/24 08/17/24 08/17/24 06:59 14:59 22:59 Other: Weight 97.522 kg Results CBC & Chem 7: 08/18/24 05:30 08/18/24 05:30 Labs: Abnormal Lab Results - Last 24 Hours (Table) 08/17/24 Range/Units 11:46 Chloride 110 H (98-107) mmol/L BUN 24 H (7-17) mg/dL TSH <0.015 L (0.465-4.680) mIU/L Free T4 2.22 H (0.78-2.19) ng/dL
--- NOTE | 2024-08-18 16:06 | P.DS ---
Providers Date of admission: 08/17/24 12:34 Expected date of discharge: 08/18/24 Attending physician: Alvin Clements Consults: 08/17/24 12:41 Consult Physician Urgent Consulting Provider: [facility] Consult Reason/Comments: chest pain Do you want consulting provider notified?: Yes Primary care physician: Alvin Clements Hospital Course: HISTORY OF PRESENT ILLNESS: This is a 74-year-old female patient of mine with a previous medical history significant for hypertension and hypertensive cardiovascular disease, history of hypothyroidism, osteoarthritis, obesity, patient presented to the emergency department at [facility] because of left-sided chest pain that started when she was running some errands yesterday, patient was seen in my office not long ago, she presented with similar symptoms, she had an echocardiogram that showed moderate mitral regurgitation without evidence of acute wall motion abnormalities, she did also have an ultrasound of the carotid that was negative, but because of her presentation patient she came to the emergency department for evaluation and she wanted to make sure her heart is doing okay, EKG did not show evidence of acute ST-T wave changes, cardiac enzymes were negative, but the patient was admitted to the hospital as an observation for evaluation by cardiology. 08/18: Patient is laying down in bed in no apparent distress, she denies any chest pain, shortness of breath, she has no abdominal pain, nausea vomiting and she did have episode of diarrhea, she was seen earlier by cardiology who recommended for the patient to follow-up as an outpatient for a stress test, she was started on baby aspirin 81 mg once every day, I had a long conversation with the patient about that her laboratory evaluation that showed the TSH is quite suppressed, we will decrease her levothyroxine to 150 mcg 5 days a week, and the sixth day she take half a pill, and none on the seventh day, she continues to do Cytomel 5 mcg orally once every day 6 days of the 7 days. I will check her TSH and free T4 as an outpatient, we would like to keep her TSH suppressed but keep her FT4 and FT3 within normal range. Discharge diagnoses 1. Chest pain likely noncardiac 2. Hypertension and hypertensive cardiovascular disease. 3. Mixed hyperlipidemia. 4. Hypothyroidism. 5. History of gout. 6. GERD with esophagitis. 7. Irritable bowel syndrome with diarrhea. Patient Condition at Discharge: Stable Plan - Discharge Summary Discharge Rx Participant: No New Discharge Prescriptions: Continue Levothyroxine Sodium [Synthroid] 150 mcg PO DAILY allopurinoL [Allopurinol] 300 mg PO W/BRKFST Liothyronine Sodium [Cytomel] 5 mcg PO DAILY Calcium Carbonate [Calcium] 600 mg PO W/LUNCH Atorvastatin [Lipitor] 40 mg PO Q48H Alendronate Sodium [Fosamax] 70 mg PO TU Losartan [Cozaar] 50 mg PO W/BRKFST Ubidecarenone [Coenzyme Q10] 200 mg PO W/LUNCH Glucosamine Sulfate 500 mg PO W/LUNCH Ascorbic Acid [Vitamin C] 500 mg PO W/LUNCH Cholecalciferol [Vitamin D3 (125 Mcg = 5000 Iu)] 125 mcg PO W/LUNCH Ginkgo Biloba [place] Extract [Ginkgo Biloba] 125 mg PO W/LUNCH Zinc Gluconate [Zinc] 50 mg PO W/LUNCH Omeprazole [PriLOSEC] 40 mg PO DAILY Multivit-Min/Iron/Folic/Lutein [Centrum Silver Women Tablet] 1 tab PO W/LUNCH Turmeric Root Extract [Turmeric] 500 mg PO W/LUNCH Discharge Medication List Levothyroxine Sodium [Synthroid] 150 mcg PO DAILY 08/30/16 [History] Liothyronine Sodium [Cytomel] 5 mcg PO DAILY 08/30/16 [History] allopurinoL [Allopurinol] 300 mg PO W/BRKFST 08/30/16 [History] Alendronate Sodium [Fosamax] 70 mg PO TU 06/25/22 [History] Atorvastatin [Lipitor] 40 mg PO Q48H 06/25/22 [History] Calcium Carbonate [Calcium] 600 mg PO W/LUNCH 06/25/22 [History] Cholecalciferol [Vitamin D3 (125 Mcg = 5000 Iu)] 125 mcg PO W/LUNCH 06/25/22 [History] Losartan [Cozaar] 50 mg PO W/BRKFST 02/07/23 [History] Ascorbic Acid [Vitamin C] 500 mg PO W/LUNCH 08/17/24 [History] Ginkgo Biloba [place] Extract [Ginkgo Biloba] 125 mg PO W/LUNCH 08/17/24 [History] Glucosamine Sulfate 500 mg PO W/LUNCH 08/17/24 [History] Multivit-Min/Iron/Folic/Lutein [Centrum Silver Women Tablet] 1 tab PO W/LUNCH 08/17/24 [History] Omeprazole [PriLOSEC] 40 mg PO DAILY 08/17/24 [History] Turmeric Root Extract [Turmeric] 500 mg PO W/LUNCH 08/17/24 [History] Ubidecarenone [Coenzyme Q10] 200 mg PO W/LUNCH 08/17/24 [History] Zinc Gluconate [Zinc] 50 mg PO W/LUNCH 08/17/24 [History] Follow up Appointment(s)/Referral(s): Alvin Clements MD [Primary Care Provider] - 1 Week Patient Instructions/Handouts: Chest Pain (ED), Chest Pain (DC) Activity/Diet/Wound Care/Special Instructions: FOLLOW UP DIRECTED, SOONER FOR WORSENING SYMPTOMS, PROBLEMS, OR CONCERNS. Discharge Disposition: HOME SELF-CARE
[2024-08-21] MEDS ORDERED: NON FORMULARY DRUG (Alendronate Sodium [Fosamax] 70 MG Tablet) PO SCH (09:00)
== END 2024-08-18 16:33 | disposition home or self-care (01) ==
LOC: EC 10:28 → 6NMEDSUR 12:34
PROVIDERS: ADMIT Internal Medicine; ATTEND Internal Medicine
DX: R07.89 Other chest pain (principal); I11.9 Hypertensive heart disease without heart failure; E78.2 Mixed hyperlipidemia; E89.0 Postprocedural hypothyroidism; M10.9 Gout, unspecified; K21.00 Gastro-esophageal reflux disease with esophagitis, without bleeding; K58.0 Irritable bowel syndrome with diarrhea; E66.9 Obesity, unspecified; Z68.38 Body mass index [BMI] 38.0-38.9, adult; I34.0 Nonrheumatic mitral (valve) insufficiency; M19.90 Unspecified osteoarthritis, unspecified site; M10.00 Idiopathic gout, unspecified site; Z79.83 Long term (current) use of bisphosphonates; Z79.890 Hormone replacement therapy; Z96.653 Presence of artificial knee joint, bilateral; Z90.49 Acquired absence of other specified parts of digestive tract; Z82.3 Family history of stroke; Z82.49 Family history of ischemic heart disease and other diseases of the circulatory system; Z82.62 Family history of osteoporosis; Z83.3 Family history of diabetes mellitus
CPT/HCPCS: 96361 ×2; 96372 ×2; 96360; 99285; 36415; 93005; 85379; 84439; 80053 ×2; 84443; 83735; 84484 ×2; 85025 ×2; 85610; 85730; 71046; G0378 ×2; J1644 ×2

== ENCOUNTER → 2024-10-03 | Outpatient (CLI) | payer MEDICARE, BC ==
--- NOTE | 2024-10-03 13:13 | CA ---
Stress Echo Report Andreia Burnette Age: 74 Gender: F : 1950 Exam Date: 10/03/2024 08:49 Exam Location: [place] Echo Ht (in): 63 Wt (lb): 220 Ordering Physician: Alvin Clements MD Referring Physician: Alvin Clements MD [employer] Loom: [email or web address] Nav Technologist Procedure CPT: Indication: R00.2 palpitations ICD-9 Codes: Rhythm: Patient History: Cardiac Medications: see list Medications in past 24 hours: Contrast: N/A Stress Results Protocol: Yeison Total dose(mL): NA Exercise Duration (min:sec): 5:[address] Depression (mm): Angina Score: Cortés Score: METS: 7.0 Resting HR: 79 Resting BP: 120 / 78 Peak HR: 125 Peak BP: 159 / 90 Max Predicted HR: 145 86 % Max Predicted HR Target HR: 123 Double Product: Stress Summary: BP Response: Reason for Termination: MAX EXERTION/TARGET HR Cardiac Symptoms: DIFFICULTY IN BREATHING ECG Analysis Resting ECG: Stress ECG: Arrhythmia: Echo Analysis Resting Echo: Peak Echo Analysis: MEASUREMENTS (Male/Female) Normal Values CONCLUSIONS Patient underwent exercise stress echo with a Yeison protocol treadmill stress test. Patient exercised into Stage 2 for a total of 5 minutes and 1 second reaching a total of 7.0 METS. Patient's maximum heart rate was 125 which represented 86% age- predicted maximum heart rate. Stress EKG portion: At baseline patient's EKG showed normal sinus rhythm, normal axis, no significant ST or T wave abnormalities. At peak exercise, EKG showed mild 0.[address] depressions in the inferior leads.. Stress echo portion: 2-D echocardiogram was performed in the parasternal long, personal short, apical 2 and apical four-chamber views at rest, peak exercise and in recovery. At baseline, echocardiogram showed left ventricular ejection fraction 55% without wall motion abnormalities. With peak exercise, echocardiogram shows improvement in left ventricular ejection fraction, increase contractility, decrease in left ventricular end systolic dimension without wall motion abnormalities consistent with a normal response to exercise. Conclusions: 1. Mildly abnormal stress EKG portion. 2. Normal stress echo portion without inducible ischemia 3. Fair exercise capacity. Dr. Harvey Taylor DO (Electronically Signed) Final Date: 03 October 2024 13:12
== END | disposition home or self-care (01) ==
LOC: RADNMMAIN 08:14
PROVIDERS: ATTEND Internal Medicine
DX: R00.2 Palpitations (principal); R94.31 Abnormal electrocardiogram [ECG] [EKG]
CPT/HCPCS: C8930; Q9957; 93351

== ENCOUNTER → 2024-10-03 | Outpatient (CLI) | payer MEDICARE, BC ==
--- NOTE | 2024-10-20 05:22 | EM ---
EVENT MONITOR INDICATION: Palpitations. Underlying rhythm is sinus with an average heart rate of 79 beats per minute. Heart rate varied from 132 beats per minute to 59 beats per minute. There were no episodes of sustained ventricular or supraventricular tachyarrhythmias. There were no episodes of more than 2-second pauses. CONCLUSIONS: This event monitor lasted for about 3-1/2 days. It showed sinus rhythm with sinus bradycardia and sinus tachycardia with occasional premature ventricular contractions. MMODL / IJN: [id number] /
== END | disposition home or self-care (01) ==
LOC: RADECHMAIN 08:13
PROVIDERS: ATTEND Internal Medicine
DX: R00.2 Palpitations (principal); I49.3 Ventricular premature depolarization; R00.1 Bradycardia, unspecified
CPT/HCPCS: 93270

== ENCOUNTER 2024-10-05 08:23 | Emergency (ER) | payer MEDICARE, BC ==
[2024-10-05] MEDS: KETOROLAC 15 MG/ML 1 ML VIAL IM STA (08:55)
[2024-10-05] MEDS: LIDOCAINE 4% PATCH TOPICAL ONE (08:56)
--- NOTE | 2024-10-05 09:18 | ED ---
Fall HPI - General Chief Complaint: Fall Stated Complaint: Fall-Back pain Time Seen by Provider: 10/05/24 08:41 Source: patient, RN notes reviewed Mode of arrival: ambulatory Limitations: no limitations - History of Present Illness Initial Comments: 74-year-old female presents emergency department chief complaint of low back pain she states that she was moving some furniture yesterday midday when she fell backwards very onto her buttock she had no head injury no loss conscious. She complains of low back pain she did take Tylenol nothing this morning she denies any bowel, bladder and cons retention no saddle anesthesias no lower extremity weakness or paresthesias. - Related Data Home Medications Medication Instructions Recorded Confirmed Levothyroxine Sodium [Synthroid] 150 mcg PO DAILY 08/30/16 08/17/24 Liothyronine Sodium [Cytomel] 5 mcg PO DAILY 08/30/16 08/17/24 allopurinoL [Allopurinol] 300 mg PO W/BRKFST 08/30/16 08/17/24 Alendronate Sodium [Fosamax] 70 mg PO TU 06/25/22 08/17/24 Atorvastatin [Lipitor] 40 mg PO Q48H 06/25/22 08/17/24 Calcium Carbonate [Calcium] 600 mg PO W/LUNCH 06/25/22 08/17/24 Cholecalciferol [Vitamin D3 (125 125 mcg PO W/LUNCH 06/25/22 08/17/24 Mcg = 5000 Iu)] Losartan [Cozaar] 50 mg PO W/BRKFST 02/07/23 08/17/24 Ascorbic Acid [Vitamin C] 500 mg PO W/LUNCH 08/17/24 08/17/24 Ginkgo Biloba [place] Extract [Ginkgo 125 mg PO W/LUNCH 08/17/24 08/17/24 Biloba] Glucosamine Sulfate 500 mg PO W/LUNCH 08/17/24 08/17/24 Multivit-Min/Iron/Folic/Lutein 1 tab PO W/LUNCH 08/17/24 08/17/24 [Centrum Silver Women Tablet] Omeprazole [PriLOSEC] 40 mg PO DAILY 08/17/24 08/17/24 Turmeric Root Extract [Turmeric] 500 mg PO W/LUNCH 08/17/24 08/17/24 Ubidecarenone [Coenzyme Q10] 200 mg PO W/LUNCH 08/17/24 08/17/24 Zinc Gluconate [Zinc] 50 mg PO W/LUNCH 08/17/24 08/17/24 Allergies Allergy/AdvReac Type Severity Reaction Status Date / Time Penicillins Allergy Rash/Hives Verified 10/05/24 08:32 Review of Systems ROS Statement: Those systems with pertinent positive or pertinent negative responses have been documented in the HPI. ROS Other: All systems not noted in ROS Statement are negative. Past Medical History Past Medical History: GERD/Reflux, Hypertension, Thyroid Disorder Additional Past Medical History / Comment(s): GOUT History of Any Multi-Drug Resistant Organisms: None Reported Past Surgical History: Orthopedic Surgery Additional Past Surgical History / Comment(s): thyroidecetomy, bilat. total knee replacements, choley, , pre-cancerous lesions., avi cataracts. Past Anesthesia/Blood Transfusion Reactions: No Reported Reaction Past Psychological History: No Psychological Hx Reported Smoking Status: Never smoker Past Alcohol Use History: Occasional Past Drug Use History: None Reported - Past Family History Father Family Medical History: Coronary Artery Disease (CAD), CVA/TIA, Diabetes Mellitu s Mother Family Medical History: Coronary Artery Disease (CAD) General Exam Limitations: no limitations General appearance: alert, in no apparent distress Head exam: Present: atraumatic, normocephalic, normal inspection Eye exam: Present: normal appearance, PERRL, EOMI. Absent: scleral icterus, conjunctival injection, periorbital swelling Neck exam: Present: normal inspection, full ROM. Absent: tenderness, meningismus, lymphadenopathy Respiratory exam: Present: normal lung sounds bilaterally. Absent: respiratory distress, wheezes, rales, rhonchi, stridor Cardiovascular Exam: Present: regular rate, normal rhythm, normal heart sounds. Absent: systolic murmur, diastolic murmur, rubs, gallop, clicks GI/Abdominal exam: Present: soft, normal bowel sounds. Absent: distended, tenderness, guarding, rebound, rigid Extremities exam: Present: normal inspection, full ROM, normal capillary refill. Absent: tenderness, pedal edema, joint swelling, calf tenderness Back exam: Present: full ROM, tenderness, paraspinal tenderness, vertebral tenderness (Lumbar) Neurological exam: Present: alert, reflexes normal. Absent: motor sensory deficit Course Vital Signs 10/05/24 10/05/24 08:32 12:28 Temperature 99.1 F 98.4 F Pulse Rate 87 84 Respiratory 22 18 Rate Blood Pressure 124/69 122/72 O2 Sat by Pulse 97 97 Oximetry Medical Decision Making - Medical Decision Making Was pt. sent in by a medical professional or institution ([facility], [employer], urgent care, hospital, or penitentiary...) When possible be specific @ -No Did you speak to anyone other than the patient for history (EMS, parent, family, police, friend...)? What history was obtained from this source @ -No Did you review nursing and triage notes (agree or disagree)? Why? @ -I reviewed and agree with nursing and triage notes Were old charts reviewed (outside hosp., previous admission, EMS record, old EKG, old radiological studies, urgent care reports/EKG's, penitentiary records)? Report findings @ -No old charts were reviewed Differential Diagnosis (chest pain, altered mental status, abdominal pain women, abdominal pain men, vaginal bleeding, weakness, fever, dyspnea, syncope, headache, dizziness, GI bleed, back pain, seizure, CVA, palpatations, mental health, musculoskeletal)? @ -Differential Back Pain: Strain, zoster, cauda equina syndrome, epidural abscess, vertebral osteomyelit is, discitis, fracture, subluxation, disc herniation, DJD, spinal stenosis, dissection, AAA, pancreatitis, peptic ulcer disease, pyelonephritis, kidney stone, this is not meant to be an all-inclusive list. EKG interpreted by me (3pts min.). @ -None X-rays interpreted by me (1pt min.). @ -X-ray lumbar spine showing age indeterminant L1 compression fracture CT interpreted by me (1pt min.). @ -CT lumbar showing compression fracture with no retropulsion, degenerative changes U/S interpreted by me (1pt. min.). @ -None done What testing was considered but not performed or refused? (CT, X-rays, U/S, labs)? Why? @ -None What meds were considered but not given or refused? Why? @ -None Did you discuss the management of the patient with other professionals (professionals i.e. [facility], [employer], lab, RT, psych nurse, social services specialist, parts chaser, teacher, [employer] officer, child support case officer)? Give summary @ -No Was smoking cessation discussed for >3mins.? @ -No Was critical care preformed (if so, how long)? @ -No Were there social determinants of health that impacted care today? How? (Homelessness, low income, unemployed, alcoholism, drug addiction, transportation, low edu. Level, literacy, decrease access to med. care, custodial, rehab)? @ -No Was there de-escalation of care discussed even if they declined (Discuss DNR or withdrawal of care, Hospice)? DNR status @ -No What co-morbidities impacted this encounter? (DM, HTN, Smoking, COPD, CAD, Cancer, CVA, ARF, Chemo, Hep., AIDS, mental health diagnosis, sleep apnea, morbid obesity)? @ -None Was patient admitted / discharged? Hospital course, mention meds given and route, prescriptions, significant lab abnormalities, going to OR and other pertinent info. @ -Discharge patient has no red flag symptoms no logical deficits. Patient has compression fracture she is advised to limit any significant lifting twisting bending rotation she has a follow-up with orthopedics for back brace, analgesics strict return parameters discussed Undiagnosed new problem with uncertain prognosis? @ -No Drug Therapy requiring intensive monitoring for toxicity (Heparin, Nitro, Insulin, Cardizem)? @ -No Were any procedures done? @ -No Diagnosis/symptom? @ -Fall, lumbar compression fracture Acute, or Chronic, or Acute on Chronic? @ -Acute Uncomplicated (without systemic symptoms) or Complicated (systemic symptoms)? @ -Complicated Side effects of treatment? @ -No Exacerbation, Progression, or Severe Exacerbation? @ -No Poses a threat to life or bodily function? How? (Chest pain, USA, CT, pneumonia, PE, COPD, DKA, ARF, appy, cholecystitis, CVA, Diverticulitis, Homicidal, Suicidal, threat to staff... and all critical care pts) @ -No Disposition Clinical Impression: Fall, Lumbar compression fracture Disposition: HOME SELF-CARE Condition: Stable Instructions (If sedation given, give patient instructions): Vertebral Compression Fracture (ED) Additional Instructions: Please return to the Emergency Department if symptoms worsen or any other concerns. Is patient prescribed a controlled substance at d/c from ED?: No Referrals: Alvin Clements MD [Primary Care Provider] - 1-2 days Heber Bansal DO [Doctor of Osteopathic Medicine] - 1-2 days Time of Disposition: 12:03
--- NOTE | 2024-10-05 09:33 | XR ---
EXAMINATION TYPE: XR lumbar spine 3V DATE OF EXAM: 10/05/2024 9:14 AM COMPARISON: None CLINICAL INDICATION: Female, 74 years old with history of pain, , FINDINGS: Cholecystectomy clips. Osteopenia. Slight levoconvex curvature lumbar spine. 5 lumbar type vertebral bodies. Hypertrophic facet arthropathy greatest mid and lower lumbar spine with degenerative grade 1 anterolisthesis L3-L4 and L4-L5. Mild multilevel degenerative disc disease. There is superior endplat e deformity L1 resulting in mild anterior wedge deformity, approximately 30% anterior height loss. IMPRESSION: 1. Age-indeterminate superior endplate fracture of L1. Correlate for any focal pain at this level to help assess age. There is resultant mild anterior wedge deformity with a 30% anterior height loss. 2. Hypertrophic facet arthropathy with degenerative grade 1 anterolisthesis L3-L4 and L4-L5. 3. Mild multilevel degenerative disc disease. [facility], , 10/05/2024 9:30 AM
--- NOTE | 2024-10-05 11:54 | CT ---
EXAMINATION TYPE: CT lumbar spine wo con DATE OF EXAM: 10/05/2024 9:56 AM COMPARISON: CLINICAL INDICATION: Female, 74 years old with history of pain, fracture; PHH, lumbar fracture, pain from fall TECHNIQUE: Unenhanced CT of the lumbar spine was performed. Bone and soft tissue window settings are submitted as well as coronal and sagittal reconstructions. CT DLP: 1248.[address] CTDI: mGy Automated exposure control for dose reduction was used. FINDINGS: There is a mild acute compression fracture of L1 without retropulsion. The lumbar vertebral segments from L2 through S1 are well maintained in height. There is a slight anterolisthesis of L4 on L5. There is mild degenerative disc disease throughout the lumbar region with mild spondylosis, disc spac e narrowing and vacuum phenomenon at the L5-3 and L5-S1 levels. A broad-based disc protrusion/herniation at the L5-S1 level slightly greater to the left of midline i s suspected. Confirmation with MRI of the lumbar spine is recommended if clinically indicated. Secondary to facet hypertrophy, thickening of ligamentum flavum and circumferential disc bulge there is mild spinal stenosis at the L3-4 and L4-5 levels. There is no significant bony neural foraminal encroachment. There is mild to moderate facet degeneration at L2-L5. IMPRESSION: 1. Mild compression fracture of L1 with no retropulsion 2. Possible herniation of the L5-S1 disc to the left midline. Confirmation with MRI of the lumbar spi ne is recommended to confirm. 3. Mild spinal stenosis at the L3-4 and L4-5 levels. 4. To moderate facet arthropathy from L2 through L5. [facility], , 10/05/2024 10:47 AM
[2024-10-05] MEDS: ACET/COD 300 MG/30 MG STARTER PACK 6 TAB BTL PO STA (12:19)
[2024-10-05 12:30] VITALS: BP 122/72; PULSE 84; RESP 18; TEMP 98.4
== END 2024-10-05 12:30 | disposition home or self-care (01) ==
LOC: EC 08:23
DX: S32.010A Wedge compression fracture of first lumbar vertebra, initial encounter for closed fracture (principal); Z88.0 Allergy status to penicillin; W08.XXXA Fall from other furniture, initial encounter; Y93.E9 Activity, other interior property and clothing maintenance
CPT/HCPCS: 72100; 72131; 99284; 96372; J1885; 99285

== ENCOUNTER → 2024-10-16 | Outpatient (CLI) | payer MEDICARE, BC ==
[2024-10-16 20:07] LABS: ALT 13 U/L (8-44); AST 18 U/L (13-35); Albumin 3.9 g/dL (3.8-4.9); Albumin/Globulin Ratio 1.34 Ratio (1.60-3.17); Alkaline Phosphatase 99 U/L (41-126); Blood Urea Nitrogen 20.7 mg/dL (9.0-27.0); Carbon Dioxide 23.9 mmol/L (21.6-31.8); Chloride 103 mmol/L (96-109); Globulin 2.9 g/dL (1.6-3.3); Glucose 98 mg/dL (70-110); Potassium 4.5 mmol/L (3.5-5.5); Sodium 138 mmol/L (135-145); Total Bilirubin 0.2 mg/dL (0.3-1.2); Total Protein 6.8 g/dL (6.2-8.2)
[2024-10-16 20:08] LABS: Basophils # (A) 0.04 X 10*3/uL (0.00-0.10); Basophils % (A) 0.4 %; Eosinophils # (A) 0.09 X 10*3/uL (0.04-0.35); HCT 37.4 % (37.2-46.3); HGB 12.3 g/dL (12.0-15.0); Lymphocytes # (A) 4.06 X 10*3/uL (0.90-5.00); Lymphocytes % (A) 44.2 %; MCH 29.9 pg (27.0-32.0); MCHC 32.9 g/dL (32.0-37.0); MCV 90.8 FL (80.0-97.0); Mean Platelet Volume 10.6 FL (9.5-12.2); Monocytes # (A) 0.69 X 10*3/uL (0.20-1.00); Monocytes % (A) 7.5 %; NRBC Per 100 WBC 0 X 10*3/uL (0.00-0.01); Neutrophils # (A) 4.28 X 10*3/uL (1.80-7.70); Neutrophils % (A) 46.6 %; Platelet Count 377 X 10*3/uL (140-440); RBC 4.12 X 10*6/uL (4.10-5.20); RDW 14.2 % (11.5-14.5); WBC 9.19 X 10*3/uL (4.50-10.00)
[2024-10-16 20:55] LABS: INR 0.98 sec (0.93-1.11)
== END | disposition home or self-care (01) ==
LOC: LABPAT 15:04
PROVIDERS: ATTEND Orthopaedic Surgery
DX: Z01.812 Encounter for preprocedural laboratory examination (principal); S32.009A Unspecified fracture of unspecified lumbar vertebra, initial encounter for closed fracture; I10 Essential (primary) hypertension; E55.9 Vitamin D deficiency, unspecified; Z22.322 Carrier or suspected carrier of Methicillin resistant Staphylococcus aureus; X58.XXXA Exposure to other specified factors, initial encounter
CPT/HCPCS: 36415; 80053; 82306; 85025; 85610; 86850; 86900; 86901; 87070

== ENCOUNTER 2024-10-25 05:52 | Day surgery (SDC) | payer MEDICARE, BC ==
[~2024-10-25 05:52] MED LIST changes: -DEXAMETHASONE SOD PHOSPHATE 4 MG/ML 1 ML VIAL IV ONE; -HYDROmorphone 0.5 MG/0.5 ML SYRINGE IVP PRN; -LACTATED RINGERS 1,000 ML IV SCH; -ONDANSETRON 4 MG/2 ML VIAL IVP ONE; +ONDANSETRON 4 MG/2 ML VIAL IVP PRN; +TRANEXAMIC 1,000 MG/100ML-NACL 1,000 MG in SALINE 1 100ML.BAG IVPB PRN
[2024-10-25] MEDS ORDERED: ONDANSETRON 4 MG/2 ML VIAL IVP PRN (06:27)
[2024-10-25] MEDS ORDERED: LIDOCAINE 1% (10MG/ML) FOR IV START INTRADERMA PRN (06:27)
[2024-10-25] MEDS ORDERED: HYDROmorphone 0.5 MG/0.5 ML SYRINGE IVP PRN (06:27)
--- NOTE | 2024-10-25 06:31 | P.HPOR ---
History of Present Illness H&P Date: 10/10/24 ATTESTATION NOTE HISTORY: I have reviewed the history obtained by TORIBIO Moses. Ms. Lam Lucas is a 74-year-old female who sustained an L1 compression fracture after a fall while setting up her [employer] tree on 10/03/24. She reports increased pain since the incident and is currently unable to use stairs, requiring her to sleep in a recliner downstairs. Her VAS pain score is 7/10. She denies radiculopathy, bowel/bladder issues, or other neurological symptoms. PHYSICAL EXAMINATION: I have personally examined the patient and reviewed TORIBIO Moses's detailed examination. Brown findings include: - Well-appearing female in no acute distress - Tenderness to palpation over L1 region - Restricted lumbar ROM due to pain - Normal neurological examination with intact motor strength and sensation except for L1 dermatomal deficit - Independent ambulation with negative Romberg and normal gait pattern IMAGING: Recent imaging demonstrates: - L1 vertebral compression fracture with progression noted on 10/10/24 X-rays - CT confirms mild L1 compression fracture without retropulsion ASSESSMENT: 1. L1 vertebral compression fracture 2. Mechanical low back pain 3. Recent fall PLAN: After thorough discussion of treatment options, risks, and benefits, patient has elected to proceed with L1 kyphoplasty today. Additional management includes: - LSO hybrid brace prescribed - Daily ambulation - Continue prescribed medications - Ice and rest for pain control - Follow-up post-procedure I have personally reviewed all data and agree with TORIBIO Moses's findings and plan. I was present for the brown portions of the history and physical examination, and I agree with the proposed treatment plan. .D:Date: 10/10/24 : 10:38am .T:Title: [facility] H&P Age: 74 year Height: 5'3" Weight: 245 lbs BP:/ BMI: 43.40 kg/m2 Occupation: Retired VAS: 7 CC: ER follow up r/t L1 compression fracture DOI: 10/03/24 DOS: n/a IMPRESSION: It was my pleasure to have seen and examined Andreia. I reviewed the patient's clinical syndrome, physical findings, and imaging studies during the appointment today. It is my impression that the patient has a diagnosis of. 1. L1 vertebral compression fracture 2. Recent fall 3. Mechanical low back pain PLAN: -I discussed treatment options with the patient, including operative and non- operative options, and they have elected to proceed with the following surgical procedure: L1 kyphoplasty The indications, risks, benefits, and alternatives to surgery were discussed with the patient. Specifically (but not limited to) the risks of infection, stiffness, recurrence of symptoms, need for revision surgery, local numbness, neurovascular injury, and blood clots were discussed. The patient's questions w ere answered.The decision to proceed was made. Consent will be obtained for the procedure. -A new prescription was provided to [employer] for a LSO hybrid brace. -Ambulate daily -Take medications as directed -Ice and rest for pain and swelling control. FOLLOW UP:Post procedure HISTORY: Ms. Lam Lucas presents to the office today, 10/10/24, for an evaluation after her visit to the ER on 10/03/24. Patient states she presented to the ER after she was attempting to set up her [employer] and she fell. Patient has had a CT of the lumbar spine demonstrates a L1 vertebral compression fracture. Patient states her pain has increased since the incident. Patient denies any radiculopathy into the bilateral lower extremities. She states she is unable to perform stairs to get to her bedroom and is currently sleeping in a recliner down stairs. Patient has limited asssistance at home. She states her is mostly bedbound and utilizes a rolling walker periodically. Otherwise patient denies any f/c/sob/cp, perineal numbness or tingling, bowel or bladder incontinence/retention. Patient is ambulatoryindependently. The patients' past social, medical, family, surgical history, as well as review of systems, have been reviewed. Please refer to the Neurosurgery History and Physical form that has been scanned into our electronic medical record system. 16 points review of systems completed and as stated in HPI, all other systems reviewed are negative. PAST TREATMENTS: Physical Therapy in the past 6 months? No Did it help? n/a Physician Directed Home Exercises: No Medications: [place] 5/325mg Alternative Interventions: Chiropractic: No Massage therapy: No R.I.C.E: Yes Brace: No Injections: No P3 Social History: .CE:Clinical Elements: Smoking: never a smoker P3 .CE:Clinical Elements: Alcohol: currently drinks alcohol P3 .CE:Clinical Elements: Alcohol Quit Date: wine 2-3 a week P3 Family History: Reviewed, see appropriate section of the chart for details. P2 Past Medical History: Reviewed, see appropriate section of the chart for details. P1 Current Medications: Rx: allopurinoL 300 mg tablet Ref: 0 Instructions: take 1 tablet (300 mg) by oral route 1 times per day Rx: atorvastatin 40 mg tablet Ref: 0 Instructions: take 1 tablet (40 mg) by oral route once daily Rx: benazepriL 10 mg tablet Ref: 0 Instructions: take 1 tablet (10 mg) by oral route 1 times per day Rx: Calcium Adult Ref: 0 Rx: Centrum Ref: 0 Rx: diphenoxylate-atropine 2.5 mg-0.025 mg tablet Ref: 0 Instructions: take 2 tablets (5 mg) by oral route 2 times per day Rx: levothyroxine 150 mcg tablet Ref: 0 Instructions: take 1 tablet (150 mcg) by oral route once daily Rx: liothyronine 5 mcg tablet Ref: 0 Instructions: take 1 tablet (5 mcg) by oral route once daily Rx: omeprazole 20 mg capsule,delayed release Ref: 0 Rx: Vitamin D2 Ref: 0 Rx: zinc oxide Ref: 0 Rx: HYDROcodone 5 mg-acetaminophen 325 mg tablet Ref: 0 Instructions: take 1 tablet by oral route every 6 hours as needed for pain P1 RADIOGRAPHS: XRay Lumbar AP/lateral 2 views taken at [facility] 10/10/24: Mild multilevel spondylitic and degenerative changes with preserved alignment. There is a L1 vertebral compression fracture that has progressed since prior imaging taken on 10/03/2024. Remaining vertebral body heights are preserved. CT [facility] of LumbarSpine: IMPRESSION: 1. Mild compression fracture of L1 with no retropulsion 2. Possible herniation of the L5-S1 disc to the left midline. Confirmation with MRI of the lumbar spine is recommended to confirm. 3. Mild spinal stenosis at the L3-4 and L4-5 levels. 4. To moderate facet arthropathy from L2 through L5. PHYSICAL EXAM: General: AOX3, NAD, Well hydrate, Well nourished HEENT: No lumps or masses Extremities: No color changes, no pooling Hairy Patches: ABSENT Dorsal Skin Dimples: Normal [employer] spots: ABSENT Surgical Incisions: n/a Muscle Appearance: Well formed, no atrophy Palpation: Midline: Yes, over the L1 region Paracervical: NO Parathoracic: NO Paralumbar: NO Postural Balance: Coronal: BALANCED Sagittal: BALANCED Shoulder height: LEVEL Pelvic Girdle: LEVEL SIJ Testing: No ROM and Appearance: Neck: UNRESTRICTED Lumbar: RESTRICTED due to pain Shoulders: Symmetrical Hips: Symmetrical Knees: Symmetrical Hands: Symmetrical Feet: Symmetrical VASCULAR STATUS: RUE- 2 LUE-2 RLE-2 LLE-2 Edema: NONE NEUROLOGICAL EXAMINATION: Mental Status: Awake, alert, oriented fully with normal attention, concentration and memory. Fluent appropriate speech. CRANIAL NERVES: I: Olfactory not tested. II: Visual acuity normal, no visual field deficit noted with confrontation. III,IV: Normal pupillary reflexes & intact extraocular movements without nystagmus. V,: Intact symmetrical facial sensation. VII: Intact symmetrical facial motor movementVIII: Hearing intact. IX,X: Intact gag, swallow, & normal voice. XI: Sternocleidomastoid, trapezius function intact. XII: Tongue midline with normal movements. 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 YES -Dysdiadochokinesia examination negative bilaterally? YES LOWER EXTREMITY RIGHT LEFT Hip Flexion 5 5 Knee Extension 5 5 Knee Flexion 5 5 Dorsiflexion 5 5 Plantarflexion 5 5 EHL 5 5 FHL 5 5 REFLEXES (0-4/2, NT) RIGHT LEFT Bicep 2 2 Brachioradialis 2 2 Tricep 2 2 Patellar 2 2 Achilles 2 2 PATHOLOGICAL REFLEXES: Hoffmans: ABSENT BL Clonus: ABSENT BL Babinski: NEG BL Rectal Tone: INTACT SENSATION (0-4, NT): RUE-2LUE-2 RLE-2 LLE-2 Dermatomal deficit: L1 GAIT AND FUNCTIONAL EVALUATION: Ambulatory aids- INDEPENDENT Rombergs test- NEG toe/heel walk- INTACT Squatting to a min of 60 deg and back- ABLE with pain Single leg stance- ABLE Hand to finger (nose)- ABLE smooth Trendelenburg sign negative bilaterally PATIENT EDUCATION: Medications Reviewed: YES In our visit today Ms. Lam Lucas and I have had a chance to go over my understanding of the patient's current condition, the natural course history without intervention and various interventional options. Questions were invited and answered, and the patient wishes to proceed as outlined above. I will be sure to keep you updated after Ms. Lam Lucas returns here for further follow-up. Thank you again for your referral. Please do not hesitate to contact me if you have any further questions. Signed and authenticated by: Ana Luisa Moses MSN, IT SYSTEMS ADMINISTRATOR-C [facility] [address] [place] [address] This message is confidential, intended only for the named recipient(s) and may contain information that is privileged or exempt from disclosure under applicable law. If you are not the intended recipient(s), you are notified that the dissemination, distribution or copying of this information is strictly prohibited. If you received this message in error, please notify the sender then delete this message. #Orders: Xray L Spine 2v # SIGNED BY Ana Luisa Moses, SERJIO, Nurse Practitioner (STO)10/10/2024 01:46P Past Medical History Past Medical History: GERD/Reflux, Hyperlipidemia, Hypertension, Osteoarthritis (OA), Thyroid Disorder Additional Past Medical History / Comment(s): GOUT; Fell 2 weeks ago- L1 fracture History of Any Multi-Drug Resistant Organisms: None Reported Past Surgical History: Section, Cholecystectomy, Joint Replacement, Orthopedic Surgery Additional Past Surgical History / Comment(s): thyroidectomy, avi total knee replacements, pre-cancerous skin lesions removed, avi cataracts, cyst removed right middle finger, trigger finger surg, right rotator cuff surg Past Anesthesia/Blood Transfusion Reactions: No Reported Reaction Additional Past Anesthesia/Blood Transfusion Reaction / Comment(s): no hx blood transfusion Smoking Status: Never smoker - Past Family History Father Family Medical History: Coronary Artery Disease (CAD), CVA/TIA, Diabetes Mellitus, Deep Vein Thrombosis (DVT) Mother Family Medical History: Coronary Artery Disease (CAD) Medications and Allergies Home Medications Medication Instructions Recorded Confirmed Type Levothyroxine Sodium [Synthroid] 150 mcg PO DAILY 08/30/16 10/18/24 History Liothyronine Sodium [Cytomel] 5 mcg PO DAILY 08/30/16 10/18/24 History allopurinoL [Allopurinol] 300 mg PO W/BRKFST 08/30/16 10/18/24 History Alendronate Sodium [Fosamax] 70 mg PO TU 06/25/22 10/18/24 History Atorvastatin [Lipitor] 40 mg PO Q48H 06/25/22 10/18/24 History Calcium Carbonate [Calcium] 600 mg PO W/LUNCH 06/25/22 10/18/24 History Cholecalciferol [Vitamin D3 (125 125 mcg PO W/LUNCH 06/25/22 10/18/24 History Mcg = 5000 Iu)] Losartan [Cozaar] 50 mg PO W/BRKFST 02/07/23 10/18/24 History Ascorbic Acid [Vitamin C] 500 mg PO W/LUNCH 08/17/24 10/18/24 History Ginkgo Biloba [place] Extract [Ginkgo 125 mg PO W/LUNCH 08/17/24 10/18/24 History Biloba] Glucosamine Sulfate 500 mg PO W/LUNCH 08/17/24 10/18/24 History Multivit-Min/Iron/Folic/Lutein 1 tab PO W/LUNCH 08/17/24 10/18/24 History [Centrum Silver Women Tablet] Omeprazole [PriLOSEC] 40 mg PO DAILY 08/17/24 10/18/24 History Turmeric Root Extract [Turmeric] 500 mg PO W/LUNCH 08/17/24 10/18/24 History Ubidecarenone [Coenzyme Q10] 200 mg PO W/LUNCH 08/17/24 10/18/24 History Zinc Gluconate [Zinc] 50 mg PO W/LUNCH 08/17/24 10/18/24 History Docusate Sodium 100 mg PO DAILY 10/18/24 10/18/24 History HYDROcodone/APAP 5-325MG [[place] 1 tab PO Q8H PRN 10/18/24 10/18/24 History 5-325] Allergies Allergy/AdvReac Type Severity Reaction Status Date / Time Penicillins Allergy Rash/Hives Verified 10/18/24 14:52 Physical Examination Osteopathic Statement: *. No significant issues noted on an osteopathic structural exam other than those noted in the History and Physical/Consult.
[2024-10-25] MEDS: IV FLUID CONTINUATION 1,000 ML IV ONE (06:51)
[2024-10-25] MEDS: DEXAMETHASONE SOD PHOSPHATE 4 MG/ML 1 ML VIAL IV ONE (07:12)
[2024-10-25] MEDS: GABAPENTIN 300 MG CAP PO PRN (07:12)
[2024-10-25] MEDS: ACETAMINOPHEN TAB 500 MG TAB PO PRN (07:12)
[2024-10-25] MEDS: LACTATED RINGERS 1,000 ML IV SCH (07:12)
[2024-10-25] MEDS: ONDANSETRON 4 MG/2 ML VIAL IVP ONE (07:13)
[2024-10-25] MEDS ORDERED: LIDOCAINE 1% INJ 10MG/ML (20 ML MDV) ONE (07:27)
[2024-10-25] MEDS ORDERED: fentaNYL (PF) 50 MCG/ML 2 ML AMP ONE (07:27)
[2024-10-25] MEDS ORDERED: SUCCINYLCHOLINE CHLORIDE 200 MG/10 ML VIAL IV ONE (07:27)
[2024-10-25] MEDS ORDERED: PROPOFOL 10 MG/ML 20 ML VIAL IV ONE (07:27)
[2024-10-25] MEDS ORDERED: TRANEXAMIC 1,000 MG/100ML-NACL PREMIX BAG ONE (07:27)
[2024-10-25] MEDS ORDERED: MIDAZOLAM 2 MG/2 ML VIAL ONE (07:27)
[2024-10-25] MEDS: BUPIVACAINE (PF) 0.5% 30 ML VIAL SQ ONE (07:32)
[2024-10-25] MEDS: LIDOCAINE 2%-EPI 1:100,000 20 ML VIAL SQ ONE (07:32)
[2024-10-25] MEDS: IOPAMIDOL M200 10 ML VIAL INTRATHECA ONE (07:32)
--- NOTE | 2024-10-25 08:37 | P.OP ---
Date of Procedure: 10/25/24 Preoperative Diagnosis: 1. L1 VERTEBRAL COMPRESSION FRACTURE 40% COMPRESSED ANTERIOR WEDGE 2. sEVERE LOW BACK PAIN 3. FALL FROM STANDING 4. DEBILITY RELATED TO ABOVE Postoperative Diagnosis: 1. L1 VERTEBRAL COMPRESSION FRACTURE 40% COMPRESSED ANTERIOR WEDGE 2. sEVERE LOW BACK PAIN 3. FALL FROM STANDING 4. DEBILITY RELATED TO ABOVE Procedure(s) Performed: 1. L1 KYPHOPLASTY WITH BIOPSY AND VERTEBRAL AUGMENTATION Implants: [employer] Anesthesia: GETA Surgeon: Heber Bansal (FA: CORRINA PHILLIPS) Estimated Blood Loss (ml): 5 IV fluids (ml): 500 Urine output (ml): 0 Pathology: other Condition: stable Disposition: PACU Indications for Procedure: Spine Surgery Clinical and Risk Review ERIKA OWUSU is a 74 yo femalepresenting for evaluation of Low back pain,difficulty with ADLs and debilitating pain. It was my pleasure to have seen and examined ERIKA OWUSU. In our visit today we have had a chance to go over subjective complaints, physical examination findings and treatments including the natural course history without intervention and various interventional options. The patient's imaging demonstrates the following findings: * L1 VCF THAT IS 40% WEDGE COMPRESSION ANTERIOR WITH LOCAL KYPHOTIC DEFORMITY * SPONDYLOSIS THROUGH LUMBAR SPINE WITH VARYING DEGREES OF STENOSIS On a physical exam, ERIKA OWUSU demonstrates the following findings: * LOW BACK PAIN, SEVERE WITH TTP OVER L1 REGION MIDLINE AND PARASPINAL * DIFFICULTY WITH ADLS DUE TO PAIN * REFRACTORY TO CONSERVATIVE TREATMENT I have explained to the patient that as their condition progresses it will cause further neurological deficits and eventual paralysis. Based on the patients imaging, physical exam, and the rapid progression and disabling nature of their symptoms, at this time I recommend surgery in the form of a: L1 KYPHOPLASTY WITH BIOPSY. I discussed the risk and benefits of this procedure at length with ERIKA OWUSU. The patient and significant other agreed to consider pursuing the procedure above mentioned. Prior to surgery, they should follow up with her PCP (Cardio, ID, IM etc) for clearance. Questions were invited and answered, and the patient wishes to proceed as outlined below. Currently, I am recommendin. L1 KYPHOPLASTY WITH BIOPSY 2. Obtain appropriate presurgical workup and clearances as discussed with the patient. 3. Review of surgical risks and benefits as well as an educational packet on the proposed surgical procedure. Risks: All surgical procedures come with inherent risks, including those related to positioning, anesthesia, intraoperative findings, and postoperative complications. It is important to understand that surgery does not come with any guarantee of a successful outcome as complications and adverse events are always possible. The patient was given a handout in the office today discussing the surgical procedure and risks associated with the intervention, both of which were discussed with the patient. These risks include but are not limited to the following: Experiencing same, different or even worse symptoms in back, neck, arms, or legs compared to before surgery. Requiring further surgery or other forms of treatment presently or at some time in the future at same or other levels of the intended spine surgery. On an extreme but fortunately relatively rare basis severe complications such as blindness, stroke, heart attack, temporary and/or permanent nerve injury, paralysis, coma, or may occur, sometimes without known explanation. Surgical complications may include but are not limited to risk of infection, fluid accumulation in the surgical dissection site, including a seroma or hematoma, that requires additional surgery, wound drainage, bleeding, new numbness or weakness, vision changes/loss, spinal fluid leakage, non-healing and/or infected incision, headaches, difficulty or inability to swallow, hoarseness, hemopneumothorax, pneumothorax, impotence, retrograde ejaculation, vaginal dryness; injury to nerves, spinal cord, blood vessels, lymphatics or other vital organs (i.e., bowel injury, injury to the great vessels); heterotopic bone formation; complications related to the hardware such as screws, rods, cages including misplaced hardware, device failure, instrumentation at the wrong spine level, hardware fracture/breakage, or hardware loosening; vertebral failure of the spinal column above or below the newly placed hardware; retained surgical instrumentations or devices and the need for further surgery. Medical risks of the planned spine surgery include but are not limited to generalized Infections to the whole body or local areas outside of the surgical site (sepsis), heart attack, bleeding, anaphylaxis, meningitis, seizure, epilepsy, hearing loss, burn ogden, laceration of the head or other areas of the body, bruising, hypersensitivity of the skin, bladder over distension; allergic reaction; shoulder injury related to positioning; fat, blood and air clots to other areas of the body like heart, lungs, brain; failure of internal organs such as lungs, kidneys, liver and excessive bleeding. If blood transfusions are necessary, note that transfusions may cause intolerance reactions such as anaphylaxis or other complex reactions. Despite best efforts, the results of spine surgery might not heal in terms of bone, soft tissues such as skin, fascia, ligaments, and joints. Additionally, in order to achieve best possible results, spine surgery may be carried out beyond the initially planned levels and involve decompression, fusion including insertion of hardware at levels other than the original intended area of surgical interest change some portions of the procedure in ord er to ensure the best possible outcomes. With spine surgery and spinal fusion, there are different off label uses of instrumentation (devices, implants and hardware) as well as biological substances (bone morphogenic proteins, demineralized bone matrix) as well as using extra bone from allograft sources (i.e. cadaver bone) or autograft (iliac crest bone, ribs, or the spine itself). The patient has been given information about these practices and their inherent risks and benefits. The patient has had a chance to review all the listed information, has been given print outs detailing this information, and has had all his/her questions answered to their satisfaction. It was my pleasure to have seen and examined ERIKA OWUSU. In our visit today we have had a chance to go over my understanding of our patient's current condition, the natural course history without intervention and various interventional options. Questions were invited and answered, and the patient wishes to proceed as outlined above. I have seen and examined the patient for 25 minutes and we have spent more than 50% of the time in repeat and detailed counseling about the patient's condition, its natural course history without and as much as can be predicted with surgery and re-review of various surgical treatment options. In conclusion, ERIKA OWUSU and significant other requests we proceed with the above suggested surgery and are willing to accept risks and limitations of the suggested surgery as to the nature of the disease process and our best attempts at treatment for the condition. Thank you again for allowing us to be part of your patient's care. Please don't hesitate to contact me if you have any further questions. Signed and authenticated by: [facility] [address] [facility], [address] [address] Description of Procedure: Lumbar (1) Kyphoplasty The patient was seen and examined in the preoperative area. All preoperative protocols were followed. Informed consent was obtained, risks and benefits of the procedure were discussed at length. Risks including bleeding infection damage to the surrounding tissue and risk of reoperation were discussed with the patient. Risk of anesthesia up to and including was discussed with the patient. These are outlined in the risk review. They were willing to accept these risks and all the risks of surgery. The patient was given a weight-based dose of antibiotics in the form of 2 g Ancef. The patient was seen and evaluated by the anesthesia team who deemed them fit for surgery. The site was marked, the patient was willing to proceed with the procedure. The patient was transferred to the operative suite by the Department of anesthesia. They were then drifted off to sleep by the department anesthesia and GETA was performed. The patient tolerated this well. Once confirmation of lines and ventilation the patient was transferred to a prone John table very carefully. All bony prominences including wrists, elbows, axilla, chest, hips, and thighs, and feet were padded very well. Special attention was paid to the genitalia, and these were padded accordingly. SCDs were placed on bilateral lower extremities and were connected. Arms were well padded and placed on arm boards up and out in the 90/90 position. Once in position, again we confirmed good ventilation capabilities and that lines were running appropriately. The patients Lumbar spine was then exposed. 1010s were placed outlining the incision site. Standard alcohol was used to clean the incision site and allowed to dry. C-arm was used to needle localize the pedicles at L1 and bio-helen the patient and confirm level for incision which was marked with a skin marker. Operative briefing was performed with all teams and everyone in agreement to proceed. The patient was then prepped and draped in a normal sterile fashion. Timeout was then performed, and all parties agreed with the procedure to be performed. Skin wilian was made. Jamshitdi was passed into the L1 vertebral body via the pedicle. This was done with biplane fluoroscopy. Once in good position in the body the trochar is removed. Biopsy needle was passed into the body and a biopsy was taken. Drill was then passed and biopsy material taken from drill as well. Curette then used to reduce endplate and create more space. Balloon was then passed an inflated which showed good reduction of endplate on AP and Lateral and confirmed central placement. The cement was then placed and pt remained stable. Good fill of cement was seen without extravasation. Once good fill, the Jamshedi was removed and the wound irrigated. The skin was closed with a simple stitch and dressed with a bandaid. The patient was then transferred off the table back to their hospital bed a- traumatically. They were extubated by the department of anesthesia. They were then transferred to PACU in stable condition having tolerated the procedure with no complications.
--- NOTE | 2024-10-25 08:46 | P.PN ---
Progress Note - Text Progress Note Date: 10/25/24 DC summary and Postop: patient underwent a uneventful L1 kyphoplasty recover appropriately and did very well. Her pain was controlled her vital signs are stable during the case and after. She was then transferred to the postoperative care unit where she was evaluated. Patient seen and examined they are doing well. Their pain is under control at this time. They are moving all 4 extremities without any issues. Vital signs are stable.. They are currently recovering and will be transferred to the floor once deemed stable by the PACU team and anesthesiologist. No Other issues at this time they deny fever chills shortness of breath or chest pain. -plan for discharge today home with self-care - medications sent to pharmacy - refer to discharge instructions
[2024-10-25 08:50] VITALS: TEMP 97.2
[2024-10-25 08:55] VITALS: RESP 16
--- NOTE | 2024-10-25 08:56 | XR ---
EXAMINATION TYPE: XR lumbar spine 2 or 3V, FL guidance operating room DATE OF EXAM: 10/25/2024 8:42 AM COMPARISON: Chest radiographs from CLINICAL INDICATION: Female, 74 years old with history of KYPHOPLASTY LUMBAR, , FINDINGS: 8 intraoperative fluoroscopic images demonstrate procedure of kyphoplasty at the L1 level. Mild verte bral compression collapse with 30% overall height loss is redemonstrated here. Positioning of the met hylmethacrylate appears satisfactory. FLUOROSCOPY: L1 Kyphoplasty 1028min fluoro time 14.[address] B[facility], , 10/25/2024 8:53 AM
[2024-10-25] MEDS: HYDROcodone/APAP 5-325MG 1 EACH TAB PO STA (09:44)
[2024-10-25 10:12] VITALS: BP 121/77; PULSE 78
== END 2024-10-25 10:44 | disposition home or self-care (01) ==
LOC: OR 05:52
PROVIDERS: ATTEND Orthopaedic Surgery
DX: S32.010A Wedge compression fracture of first lumbar vertebra, initial encounter for closed fracture (principal); M47.816 Spondylosis without myelopathy or radiculopathy, lumbar region; M48.061 Spinal stenosis, lumbar region without neurogenic claudication; I10 Essential (primary) hypertension; E78.5 Hyperlipidemia, unspecified; E89.0 Postprocedural hypothyroidism; K58.0 Irritable bowel syndrome with diarrhea; K21.9 Gastro-esophageal reflux disease without esophagitis; M10.9 Gout, unspecified; E55.9 Vitamin D deficiency, unspecified; Z79.890 Hormone replacement therapy; Z79.83 Long term (current) use of bisphosphonates; Z79.899 Other long term (current) drug therapy; Z88.0 Allergy status to penicillin; W01.0XXA Fall on same level from slipping, tripping and stumbling without subsequent striking against object, initial encounter; Y93.89 Activity, other specified
CPT/HCPCS: 72100; 22514; 20225; J2250; J0330; J1100; J2405; J2003; J3010; J2704; Q9966; J0665; 88307

== ENCOUNTER → 2025-01-01 | Outpatient (CLI) | payer MEDICARE, BC ==
--- NOTE | 2025-01-01 17:41 | MM ---
Reason for Exam: Screening (asymptomatic). Last mammogram was performed 1 year(s) and 1 month(s) ago. Patient History: Menarche at age 13. First Full-Term at age 26. Postmenopausal. Other cancer, age 64. Risk Values: Shama 5 year model risk: 1.8%. NCI Lifetime model risk: 3.9%. Prior Study Comparison: 09/09/2021 Bilateral Screening Mammogram, [facility]. 11/02/2022 Bilateral MG 3D screening mammo w/cad, [facility]. 12/02/2023 Bilateral MG 3D screening mammo w/cad, [facility]. Tissue Density: There are scattered areas of fibroglandular density. Findings: Analyzed By CAD. Chronic nodularity on both sides. There is no suspicious group of microcalcifications or new suspicious mass in either breast. Overall Assessment: Benign, BI-RAD 2 Management: Screening Mammogram of both breasts in 1 year. Patient should continue monthly self-breast exams. A clinical breast exam by your physician is recommended on an annual basis. This exam should not preclude additional follow-up of suspicious palpable abnormalities. Note on Shama scores and lifetime risk: 1. A Shama score greater than 3% is considered moderate risk. If this is the case, consider specialist referral to assess eligibility for a risk reducing agent. 2. If overall lifetime risk for the development of breast cancer is 20% or higher, the patient may qualify for future screening with alternating mammogram and breast MRI. [facility], , 01/01/2025 5:38 PM. Electronically signed and approved by: Patricia Irving M.D. Radiologist
== END | disposition home or self-care (01) ==
LOC: RADMAMWWP 07:13
PROVIDERS: ATTEND Internal Medicine
DX: Z12.31 Encounter for screening mammogram for malignant neoplasm of breast (principal); R92.323 Mammographic fibroglandular density, bilateral breasts; Z78.0 Asymptomatic menopausal state
CPT/HCPCS: 77063; 77067